=== PATIENT | female | born 1935 | race Caucasian/White ===

== ENCOUNTER 2023-10-24 00:03 | Emergency (ER) | payer MEDICARE, SELFPAY ==
[2023-10-24] VITALS (9 sets, daily range): BP systolic 130–165; BP diastolic 63–101; PULSE 60–94; RESP 16–18; TEMP 36.2–37; O2SAT 88–93; BMI 26.3
--- NOTE | ~2023-10-24 | CT_ITS ---
EXAMINATION: NONCONTRAST HEAD CT NONCONTRAST CERVICAL SPINE CT INDICATION INFORMATION: Fall with head injury COMPARISON: None TECHNIQUE: Separate noncontrast CT examinations of the head and cervical spine were performed. Coronal head CT images and coronal and sagittal cervical spine images were created at the technologist workstation. DLP: 604, 308 mGy-cm DOSE LOWERING TECHNIQUES: This CT examination was performed using dose optimization techniques as appropriate, variously including the following: - Automated exposure control - Adjustment of mA and/or kV according to patient size (this includes techniques or standardized protocols for targeted exams were dose is matched to indication/reason for exam; i.e. extremities or head) - Use of iterative reconstruction technique FINDINGS: Head: There is no evidence of acute intracranial hemorrhage or territorial infarction. No abnormal mass-effect or midline shift is seen. Rodriguez to white matter differentiation is well preserved. No extra-axial fluid collections are identified. The ventricles are normal in size. There is moderate periventricular white matter hypoattenuation consistent with chronic small vessel ischemic disease. Moderate volume loss is noted. There is left parietal scalp soft tissue swelling. No acute fracture is seen. The mastoid air cells and visualized portions of the paranasal sinuses are well-aerated. Cervical spine: There are grade 1 anterolistheses of C3 on C4 and C4 on C5 as well as grade 1 retrolisthesis of C6 on C7 and grade 1 anterolisthesis of C7 on T1. These are favored to be chronic in the setting of mild to moderate multilevel facet arthropathy. Vertebral body heights are maintained. There is disc space narrowing and endplate osteophyte formation in the lower cervical spine. No evidence of acute fracture. No prevertebral soft tissue swelling. Visualized portions of the lung apices are grossly unremarkable. The thyroid gland is not well assessed due to motion artifact. CT/CT cervical spine wo IV con IMPRESSION: HEAD: No acute intracranial findings. Left parietal scalp soft tissue swelling. CERVICAL SPINE: No acute findings identified. Moderate to severe degenerative changes.
--- NOTE | ~2023-10-24 | XR_ITS ---
EXAMINATION: XR CHEST CLINICAL INFORMATION: Cough, hypoxia COMPARISON: None available. TECHNIQUE: Frontal view of the chest was obtained. FINDINGS: There is elevation of the right hemidiaphragm, likely with adjacent basilar atelectasis. No additional consolidation is seen bilaterally. No evidence of pneumothorax, significant pleural effusion, or pulmonary edema. Cardiac size is within normal limits. Calcification is present at the aortic arch. Though suboptimally assessed on these views, there may be anterior dislocation of the right humeral head. XR/XR chest 1V IMPRESSION: 1. Elevated right hemidiaphragm with adjacent basilar atelectasis. 2. Possible anterior dislocation of the right humeral head. Dedicated radiographs of the right shoulder are recommended.
--- NOTE | ~2023-10-24 | XR_ITS ---
EXAMINATION: XR SHOULDER, RIGHT CLINICAL INFORMATION: Question dislocation COMPARISON: None available. TECHNIQUE: Two views of the right shoulder. FINDINGS: On the scapular Y view the humeral head appears slightly anteriorly positioned, suspicious for anterior subluxation. There is corresponding misalignment of the glenoid and humeral head on the AP view. The acromioclavicular joint appears widened, though this is an age-indeterminate finding. No acute fracture is seen. Redemonstrated elevated right hemidiaphragm. XR/XR shoulder RT min 2V IMPRESSION: 1. Findings suspicious for anterior subluxation of the humeral head. If possible, an axillary view may provide confirmation. 2. Widening of the acromioclavicular joint, age-indeterminate.
--- NOTE | ~2023-10-24 | CT_ITS ---
EXAMINATION: CT ANGIOGRAM OF THE CHEST WITH AND WITHOUT CONTRAST (CT PULMONARY ANGIOGRAM FOR PE) CLINICAL INFORMATION: Reason for Exam Hypoxia COMPARISON: None available. TECHNIQUE: Prior to contrast administration, noncontrast localization images were obtained. Subsequently, multidetector volumetric imaging was performed from the thoracic inlet to below the diaphragms following the administration of 65 mL Omnipaque 350 intravenous contrast. No contrast reaction reported Sagittal, coronal, and MIP oblique sagittal reformatted images were obtained on the CT workstation, uploaded to PACS, and reviewed. This CT examination was performed using dose optimization techniques as appropriate, variously including the following: *Automated exposure control *Adjustment of mA and/or kV according to patient size (this includes techniques or standardized protocols for targeted exams where dose is matched to indication/reason for exam; i.e. extremities or head) *Use of iterative reconstruction technique Total exam dose-length product 379 mGy-cm FINDINGS: Technically limited study given patient's inability to follow breathing instructions. QUALITY OF STUDY/CONTRAST BOLUS: Suboptimal. PULMONARY ARTERIES: No central or large segmental pulmonary embolus. THORACIC AORTA: No aneurysm. LUNG: Limited by motion artifact. Right basilar atelectasis. No suspicious pulmonary nodule or pulmonary masses. Central airways are patent. PLEURA: No pleural effusion. MEDIASTINUM: Elevated right hemidiaphragm. Heart is enlarged. No pericardial effusion. No bulky hilar or mediastinal lymphadenopathy. No evidence of septal bowing or right heart strain. CORONARY ARTERY CALCIFICATION: Moderate. CHEST WALL/AXILLA: No axillary or internal mammary lymphadenopathy. OSSEOUS STRUCTURES: Severe degenerative changes of bilateral shoulders. UPPER ABDOMEN: Incompletely characterized left renal hypodensities. Colonic interposition. No reflux of contrast into the hepatic veins to suggest elevated right heart pressures. CT/CT angio chest PE protocol IMPRESSION: No central or large segmental pulmonary embolus. No acute intrathoracic abnormality. VTE: indeterminate
--- NOTE | ~2023-10-24 | CT_ITS ---
EXAMINATION: CT SHOULDER WITHOUT CONTRAST, RIGHT CLINICAL INFORMATION: Abnormal x-ray COMPARISON: Radiographs from the same day TECHNIQUE: No intravenous contrast was utilized. Multidetector helical imaging was performed through the right shoulder. Coronal and sagittal reformatted images were created. This CT examination was performed using dose optimization techniques as appropriate, variously including the following: *Automated exposure control *Adjustment of mA and/or kV according to patient size (this includes techniques or standardized protocols for targeted exams where dose is matched to indication/reason for exam; i.e. extremities or head) *Use of iterative reconstruction technique DLP: 457 mGy-cm FINDINGS: There is severe degenerative change of the glenohumeral joint with joint space narrowing, spurring, and subchondral cyst formation. The apex of the humeral head appears mildly subluxed anteriorly relative to the glenoid. This may represent a chronic finding. No acute fracture is seen. There is severe degenerative change of the acromioclavicular joint. Lung parenchyma is not adequately assessed on this exam due to extensive respiratory motion artifact. CT/CT shoulder RT wo IV con IMPRESSION: Suspect mild anterior subluxation of the humeral head relative to the glenoid, which may represent a chronic finding. Severe degenerative change of the glenohumeral joint. No acute fracture identified.
--- NOTE | 2023-10-24 00:13 | ECG_ITS ---
Test Reason : FALL Blood Pressure : / mmHG Vent. Rate : 084 BPM Atrial Rate : 084 BPM P-R Int : 200 ms QRS Dur : 074 ms QT Int : 374 ms P-R-T Axes : 030 -21 044 degrees QTc Int : 441 ms Sinus rhythm with sinus arrhythmia with occasional Premature ventricular complexes Inferior infarct , age undetermined Possible Anterolateral infarct , age undetermined Abnormal ECG No previous ECGs available Referred By: Generic ED Physician Electronically Signed By:MIKAELA PHELAN MD
--- NOTE | 2023-10-24 00:42 | ED.FALL ---
HPI - Fall General Chief Complaint: Fall Stated Complaint: fall Time Seen by Provider: 10/24/23 00:27 Source: patient Mode of arrival: EMS Limitations: no limitations History of Present Illness HPI Narrative: Patient is an 88-year-old female who presents to the emergency department via EMS coming from a group home facility. Reportedly patient was found on the ground by academic support assistant, apparently was attempting to get dressed as she thought it is daytime. She is nonambulatory and wheelchair bound, she has a poor historian due to her dementia. Has laceration to the back of her head, no anticoagulants, no active bleeding. Copy of molst from [facility] indicates DNR DNI, okay to transfer to hospital Related Data Previous Rx's Medication Instructions Recorded cefuroxime axetil 500 mg tablet 500 mg PO BID #14 tabs 10/24/23 Allergies Allergy/AdvReac Type Severity Reaction Status Date / Time No Known Allergies Allergy Verified 10/24/23 00:16 Review of Systems Review of Systems: Yes all other systems are reviewed and are negative [facility] Past Medical History Attestation statement: The following information was validated with the patient. Source: old records reviewed Social History Social History Advance Directives: No Advance Directives Information Provided: Yes Physical Exam Vital Signs: Vital Signs: Last Vital Signs Temp 98.1 F 10/24/23 11:15 Pulse 86 10/24/23 11:15 Resp 16 10/24/23 11:15 BP 130/63 10/24/23 11:15 Pulse Ox 91 L 10/24/23 11:15 O2 Del Method Room Air 10/24/23 11:15 BMI result Body Mass Index 26.3 Appearance: Alert.? Disoriented. No acute distress.?Normal affect. Head: 2 cm linear laceration over scalp hematoma to the left occiput Eyes: Pupils equal, round and reactive to light.? EOMI. No nystagmus. ENT: Pharynx normal.?? Neck: Normal inspection.? Neck supple.??No midline cervical spine tenderness, step-offs, deformities. CVS: Pansystolic murmur. Normal heart rate and rhythm.? Pulses normal.?? Respiratory: No respiratory distress.? Lung sounds with rhonchi, diminished bases Abdomen: Soft and non-tender. Normoactive bowel sounds. Skin: Skin warm and dry.? Normal skin color.? Extremities: 1+ bilateral LE edema Neuro: Moves all extremities spontaneously. Sensation intact bilaterally. CN II-XII intact. No focal neuro deficits. Course Reevaluation(s) Reevaluation #1: CBC reveals a mild leukocytosis, no anemia. Unremarkable CMP. High sensitive troponin within normal range, EKG revealing sinus arrhythmia with PVCs, ventricular rate of 84, no ST elevation, no ST depression, fall likely not secondary to ACS. COVID-19 testing negative. At this time CT imaging, CXR, urinalysis are pending. Signed out to ED attending Dr. Del Rio. Time: 01:48 Reevaluation #2: s/p mechanical fall from the wheelchair questionable right shoulder subluxation versus dislocation patient on the physical exam is able to have a full range of motion on both shoulder in particular right shoulder, CT reveals chronic subluxation of the right shoulder. Otherwise negative radiographic study of head/cervical spine/chest. UTI will start on cefuroxime. Time: 06:31 Reevaluation #3: When patient ready to be discharged found to be hypoxic at 87-88% on room air, no known history of using supplemental oxygen in her records patient is unable to provide an accurate history, will consider CTA of the chest to rule out pulmonary embolism since the patient is wheelchair ridden, case signed out to Dr. Dumont. Time: 07:00 Medications Administered Discontinued Medications Generic Name Dose Route Start Last Admin Trade Name Freq PRN Reason Stop Dose Admin Cefuroxime Axetil 500 mg 10/24/23 05:29 10/24/23 06:26 Cefuroxime Axetil 500 Mg Tablet PO 10/24/23 05:30 500 mg ONCE ONE Administration Iohexol 100 ml 10/24/23 08:21 10/24/23 08:22 Iohexol 350 Mg/Ml 100 Ml Infus..Btl IV 10/24/23 08:22 65 ml ONCE ONE Administration Procedures Laceration Laceration 1: Site: scalp Side (If applicable): left Size (cm): 2 Description: linear Depth: simple, single layer Pre-repair: wound explored, irrigated extensively and deep structures intact Skin layer closed with: other (harper - 2) Medical Decision Making Medical Decision Making MDM Narrative: Patient is an 88-year-old female with past medical history of anemia, adjustment disorder, depression, right femur fracture, dementia, osteoarthritis, cardiac murmur, dysphagia, hypertension who presents emergency department for evaluation after unwitnessed fall being found on floor by staff at [facility] She is noted to have a wet sounding cough, 80 saturation on room air noted to drop down to 90, rhonchi bilaterally diminished bases. She is afebrile without tachycardia. Family at bedside reports that she has had cough recently. Will obtain CBC to evaluate for leukocytosis/ anemia, CMP and lipase to evaluate for abnormal electrolytes /abnormal renal function/ abnormal hepatic/biliary function, EKG and troponin to evaluate for ischemia/ACS. Chest x-ray to evaluate for consolidation/ infiltrate/ mass/ pulmonary congestion , CT head and cervical spine to evaluate for ICH/SDH/fracture/subluxation, and urinalysis. Patient's CT scan of the head and C-spines were negative for any acute evidence of bleeding. I took sign-out at the change of shift for possible PE/pneumonia/aspiration. Angio of the chest was grossly negative for any acute evidence of PE, pneumonia, pneumothorax, rib fracture. O2 sats approximately 91% to 92% on room air. Patient in no distress. As per previous discussion with Dr. Harvey will discharge patient home. Differential Diagnosis Differential Diagnoses: The differential diagnosis associated with the presentation includes (As noted above) Weakness, fall, head injury, UTI Admission/Observation Consideration of admission/observation: Escalation of care including admission/observation considered (See narrative above and course narrative for further detail) Lab Data MDM Lab Attestation statement: I reviewed the patient's lab results. (See course narrative) 10/24/23 01:00 10/24/23 01:00 Labs: Lab Results 10/24/23 10/24/23 10/24/23 Range/Units 00:44 01:00 01:48 WBC 11.2 H (4.8-10.8) X10*3/uL RBC 5.55 H (4.20-5.50) X10*6/uL Hgb 16.3 H (12.0-16.0) g/dl Hct 50.1 H (37.0-47.0) % MCV 90.3 (80.0-98.0) fL MCH 29.4 (27.0-33.0) pg MCHC 32.5 (31.0-35.0) g/dl RDW 14.8 (11.0-16.0) % Plt Count 231 (160-400) X10*3/uL MPV 11.0 (9.4-12.3) fL Immature Gran % (Auto) 0.6 H (0.0-0.4) % Neut % (Auto) 63.4 (45-73) % Lymph % (Auto) 25.0 (20-40) % [place] % (Auto) 8.5 (2-11) % Eos % (Auto) 2.0 (0-4) % Baso % (Auto) 0.5 (0-2) % Lymph # (Auto) 2.8 (1.2-4.9) X10*3/uL [place] # (Auto) 1.0 (0.1-1.2) X10*3/uL Eos # (Auto) 0.2 (0.0-0.4) X10*3/uL Baso # (Auto) 0.1 (0.0-0.2) X10*3/uL Abs Immat Gran (auto) 0.07 H (0.00-0.03) X10*3/uL Absolute Neuts (auto) 7.1 (2.0-8.3) x10*3/uL Absolute Nucleated RBC 0.000 (0.0-0.012) X10*3/uL Nucleated RBC % (auto) 0.0 (0.0-0.2) /100WBC PT 11.5 (11.1-13.3) SEC INR 0.9 (0.9-1.1) Sodium 141 (135-145) mmol/L Potassium 4.7 (3.3-5.1) mmol/L Chloride 102 (96-108) mmol/L Carbon Dioxide 29 (22-29) mmol/L Anion Gap 15 (12-20) BUN 16 (9-16) mg/dL Creatinine 0.69 (0.5-1.4) mg/dL Estim Creat Clear Calc 51.9 Estimated GFR > 60 Random Glucose 94 (60-115) mg/dL Calcium 9.4 (8.4-10.2) mg/dL Total Bilirubin 0.5 (0.0-1.0) mg/dL AST 27 (5-31) U/L ALT 20 (0-31) U/L Alkaline Phosphatase 94 (39-117) U/L Troponin I High Sens 3.7 (<3.5-17.0) ng/L B-Natriuretic Peptide 43 (<100) pg/mL Total Protein 7.8 (6.5-8.0) g/dL Albumin 3.9 (3.5-5.0) g/dL Urine Color Urine Appearance Urine pH (5.0-9.0) Ur Specific Jackson (1.005-1.025) Urine Protein (Neg-Trace) mg/dL Urine Glucose (UA) (Negative) mg/dL Urine Ketones (Negative) mg/dL Urine Blood (Negative) Urine Nitrite (Negative) Ur Leukocyte Esterase (Negative) Urine RBC (0-2) /HPF Urine WBC (0-5) /HPF Ur Squamous Epith Cells (0-2) /HPF Urine Bacteria (None Seen) Hyaline Casts (0-2) /LPF COVID-19 (ERMA) Negative (Negative) COVID-19 Clin Com See Note Influenza Type A (HARRY) Cancelled Negative Influenza Type B (HARRY) Cancelled Negative Influenza A & B Note Cancelled See Note 10/24/23 Range/Units 03:46 WBC (4.8-10.8) X10*3/uL RBC (4.20-5.50) X10*6/uL Hgb (12.0-16.0) g/dl Hct (37.0-47.0) % MCV (80.0-98.0) fL MCH (27.0-33.0) pg MCHC (31.0-35.0) g/dl RDW (11.0-16.0) % Plt Count (160-400) X10*3/uL MPV (9.4-12.3) fL Immature Gran % (Auto) (0.0-0.4) % Neut % (Auto) (45-73) % Lymph % (Auto) (20-40) % [place] % (Auto) (2-11) % Eos % (Auto) (0-4) % Baso % (Auto) (0-2) % Lymph # (Auto) (1.2-4.9) X10*3/uL [place] # (Auto) (0.1-1.2) X10*3/uL Eos # (Auto) (0.0-0.4) X10*3/uL Baso # (Auto) (0.0-0.2) X10*3/uL Abs Immat Gran (auto) (0.00-0.03) X10*3/uL Absolute Neuts (auto) (2.0-8.3) x10*3/uL Absolute Nucleated RBC (0.0-0.012) X10*3/uL Nucleated RBC % (auto) (0.0-0.2) /100WBC PT (11.1-13.3) SEC INR (0.9-1.1) Sodium (135-145) mmol/L Potassium (3.3-5.1) mmol/L Chloride (96-108) mmol/L Carbon Dioxide (22-29) mmol/L Anion Gap (12-20) BUN (9-16) mg/dL Creatinine (0.5-1.4) mg/dL Estim Creat Clear Calc Estimated GFR Random Glucose (60-115) mg/dL Calcium (8.4-10.2) mg/dL Total Bilirubin (0.0-1.0) mg/dL AST (5-31) U/L ALT (0-31) U/L Alkaline Phosphatase (39-117) U/L Troponin I High Sens (<3.5-17.0) ng/L B-Natriuretic Peptide (<100) pg/mL Total Protein (6.5-8.0) g/dL Albumin (3.5-5.0) g/dL Urine Color Yellow Urine Appearance Cloudy Urine pH 7.0 (5.0-9.0) Ur Specific Jackson 1.015 (1.005-1.025) Urine Protein Negative (Neg-Trace) mg/dL Urine Glucose (UA) Negative (Negative) mg/dL Urine Ketones Negative (Negative) mg/dL Urine Blood Negative (Negative) Urine Nitrite Positive H (Negative) Ur Leukocyte Esterase Large (3+) H (Negative) Urine RBC 0-2 (0-2) /HPF Urine WBC >50 H (0-5) /HPF Ur Squamous Epith Cells 0-2 (0-2) /HPF Urine Bacteria 4+ (None Seen) Hyaline Casts 0-2 (0-2) /LPF COVID-19 (ERMA) (Negative) COVID-19 Clin Com Influenza Type A (HARRY) Influenza Type B (HARRY) Influenza A & B Note Independent Interpretation I performed an independent interpretation of an: Plain X-Ray (I personally interpreted chest x-ray and agree with radiologist impression) and CT Scan (Head/C-spine: No acute pathology.) Radiology Impression Discussion of test interpretation with radiology: I have reviewed the radiologist's reading. Radiologist Impression: I reviewed the CTA findings Independent Historian Clinical information obtained from an independent historian. History obtained from or confirmed by: EMS External Record Review External record reviewed: Outpatient record Chronic Conditions Patient?s care impacted by: Other (Dementia) Discharge Plan Discharge Clinical Impression: Laceration of head, Fall, Acute UTI Patient Disposition: Home, Self-Care Instructions: Fall Prevention (ED), Urinary Tract Infection in Older Adults (ED) Additional Instructions: Two harper were placed to the laceration of the scalp and should be removed in 7 days. Take antibiotic as prescribed for urinary tract infection. Prescriptions: New cefuroxime axetil 500 mg tablet 500 mg PO BID Qty: 14 0RF Referrals: Veena Puga MD [Primary Care Provider] -
[2023-10-24 01:05] LABS: Basophils Absolute Auto 0.1 X10*3/uL (0.0-0.2); Basophils Percent Auto 0.5 % (0-2); Eosinophils Absolute Auto 0.2 X10*3/uL (0.0-0.4); Hematocrit 50.1 % (37.0-47.0); Hemoglobin 16.3 g/dl (12.0-16.0); Imm Gran Abs Auto 0.07 X10*3/uL (0.00-0.03); Imm Gran Pct Auto 0.6 % (0.0-0.4); Lymphocytes Absolute Auto 2.8 X10*3/uL (1.2-4.9); MANUAL DIFF FLAG NO; Mean Corpuscular HGB Conc 32.5 g/dl (31.0-35.0); Mean Corpuscular Hemoglobin 29.4 pg (27.0-33.0); Mean Corpuscular Volume 90.3 fL (80.0-98.0); Monocytes Percent Auto 8.5 % (2-11); Neutrophils Absolute Auto 7.1 x10*3/uL (2.0-8.3); Neutrophils Percent Auto 63.4 % (45-73); Platelet Count 231 X10*3/uL (160-400); Red Blood Count 5.55 X10*6/uL (4.20-5.50); Red Cell Distribution Width 14.8 % (11.0-16.0); White Blood Count 11.2 X10*3/uL (4.8-10.8)
[2023-10-24 01:11] LABS: INTERNATIONAL NORM RATIO 0.9 (0.9-1.1); Prothrombin Time 11.5 SEC (11.1-13.3)
[2023-10-24 01:25] LABS: Alanine Aminotransferase 20 U/L (0-31); Albumin Level 3.9 g/dL (3.5-5.0); Alkaline Phosphatase 94 U/L (39-117); Anion Gap 15 (12-20); Aspartate Amino Transferase 27 U/L (5-31); Bilirubin Total 0.5 mg/dL (0.0-1.0); Blood Urea Nitrogen 16 mg/dL (9-16); COVID-19 Test Negative (Negative); Calcium 9.4 mg/dL (8.4-10.2); Carbon Dioxide 29 mmol/L (22-29); Chloride 102 mmol/L (96-108); Creatinine Clr Calc Pharmacy 51.9; Estimated Glomerular Filt Rate > 60; Glucose Random 94 mg/dL (60-115); IDNOW Serial# 152EDE1D; Potassium 4.7 mmol/L (3.3-5.1); Sodium 141 mmol/L (135-145); Total Protein 7.8 g/dL (6.5-8.0)
[2023-10-24 01:33] LABS: Troponin-I High Sensitivity 3.7 ng/L (<3.5-17.0)
[2023-10-24 02:07] LABS: B Type Natriuretic Peptide 43 pg/mL (<100)
[2023-10-24 02:10] LABS: IDNOW Serial# 08D9AD1C; Influenza A Negative (Negative); Influenza B2 Negative (Negative)
[2023-10-24 03:52] LABS: Appearance Urine Cloudy; Color Urine Yellow; Glucose Urine UA Negative (Negative); Leukocyte Esterase Urine Large (3+) (Negative); Nitrite Urine Positive (Negative); Specific Gravity - Urine 1.015 (1.005-1.025); UMIC TRIGGER UACC YES; Urine Blood Negative (Negative); Urine Ketones Negative (Negative); Urine Protein Negative (Neg-Trace)
[2023-10-24 04:01] LABS: Bacteria Urine 4+ (None Seen); Hyaline Casts Urine 0-2 /LPF (0-2); Squamous Epithelial Cell Urine 0-2 /HPF (0-2); UACC Culture Trigger YES; WBC Urine >50 /HPF (0-5)
[2023-10-24 04:02] LABS: RBC Urine 0-2 /HPF (0-2)
[2023-10-24] MEDS: cefuroxime axetiL 500 MG TABLET PO (06:26)
[2023-10-24] MEDS: iohexoL 350 MG/ML 100 ML INFUS..BTL IV (08:22)
--- NOTE | 2023-10-24 08:30 | PC.NURSE ---
REsumed care of patient, she is currently resting, O2 ranging from 87-95 on RA. PT at baseline neuro status. Awaiting dispo at this time
--- NOTE | 2023-10-24 11:17 | PC.NURSE ---
this RN resumed care of pt a this time. alert and oriented to name only. unaware of what year she was born, pt thinks she is [place], unaware on what year it is why she's here. vss and up to date. pt denies pain - has no complaints at this time. pt resting comfortably in no apparent distress. no sob/wob noted. respirations even and unlabored. call norris placed within reach.
--- NOTE | 2023-10-24 12:48 | PC.NURSE ---
family bedside/ speaking w/ family members in regards to plan of care at this time. pt is up for d/c but ems is not able to bring pt home until 1800. pt and family aware of time for d/c at this time. diet order placed per provider order. pt continues to rest in no apparent distress. call norris placed within reach.
--- NOTE | 2023-10-24 14:03 | PC.NURSE ---
vss and up to date at this time. pt continues to wait for transport at this time. respirations remain even and unlabored. call norris placed within reach.
--- NOTE | 2023-10-24 15:30 | PC.NURSE ---
report from oc. sanaz due for 1800 from [facility].
--- NOTE | 2023-10-24 15:40 | MHC.EDTECH ---
This Pct assumed care of pt at 1500 ,vitals taken ,pt was incontinent of urine ,care given and bedding change .
--- NOTE | 2023-10-24 18:15 | PC.NURSE ---
continuing to wait for [facility], reconfirmed w racing secretary and handicapper due for a 1800 arrival by [facility]- delayed. pt ate dinner w 1:1 feed. priscila checked- clear yellow urine voiding.
--- NOTE | 2023-10-24 19:17 | PC.NURSE ---
called [facility]. given report.
--- NOTE | 2023-10-24 19:21 | PC.NURSE ---
report given to [facility] counselor. pt with duy sandoval now.
--- NOTE | 2023-10-24 19:23 | MHC.EDTECH ---
Patient feed her dinner
--- NOTE | 2023-10-24 19:30 | PC.NURSE ---
munira sanderson at bedside to listen to lungs as an audible wheeze- none on auscultation. pt sat 90%. talks full sentences.
--- NOTE | 2023-10-24 19:34 | PC.NURSE ---
no distress. talking. maria e lombardo aware sat 89% on finger, had thick nail greenlandic on this finger. changed to forehead probe and 92-93%, maria e miller'sunitha pt, aware.
== END 2023-10-24 19:47 | disposition home or self-care (01) ==
PROVIDERS: Emergency Medicine; Nurse Practitioner Family; Emergency Provider Emergency Medicine Emergency Medical Services; PCP Internal Medicine
DX: S01.01XA Laceration without foreign body of scalp, initial encounter (principal); R51.9 Headache, unspecified; N39.0 Urinary tract infection, site not specified; M25.511 Pain in right shoulder; F03.90 Unspecified dementia, unspecified severity, without behavioral disturbance, psychotic disturbance, mood disturbance, and anxiety; I49.9 Cardiac arrhythmia, unspecified; R09.02 Hypoxemia; R06.02 Shortness of breath; W01.10XA Fall on same level from slipping, tripping and stumbling with subsequent striking against unspecified object, initial encounter; Y93.9 Activity, unspecified; Y92.9 Unspecified place or not applicable; Y99.9 Unspecified external cause status; Z11.52 Encounter for screening for COVID-19; Z79.899 Other long term (current) drug therapy
CPT/HCPCS: 12031; 36415; 70450; 71045; 71275; 72125; 73030; 73200; 80053; 81001; 83880; 84484; 85025; 85610; 87086; 87088; 87186; 87502; 87635; 93005; 99284; 99285; Q9967

== ENCOUNTER → 2023-10-24 00:13 | Outpatient (BNV) | payer MEDICARE, SELFPAY | PROVIDERS: Emergency Provider Emergency Medicine Emergency Medical Services; PCP Internal Medicine; Visit Provider Internal Medicine Cardiovascular Disease | DX: I49.3 Ventricular premature depolarization (principal); R94.31 Abnormal electrocardiogram [ECG] [EKG] | CPT/HCPCS: 93010 ==

== ENCOUNTER 2025-01-11 09:28 | Inpatient (IN) | payer MEDICARE, SELFPAY ==
[2025-01-11] VITALS (10 sets, daily range): BP systolic 96–181; BP diastolic 46–95; PULSE 69–90; RESP 16–26; TEMP 35.6–36.5; O2SAT 88–97; BMI 24.0; BMI 24.7
--- NOTE | ~2025-01-11 | US_ITS ---
EXAMINATION: US EXTRACRANIAL CAROTID DUPLEX, BILATERAL CLINICAL INFORMATION: Unresponsive. Probable CVA. COMPARISON: None available. TECHNIQUE: Real-time ultrasound and Doppler techniques (integrating B-mode 2-D vascular images, Doppler spectral analysis and color-flow Doppler imaging) were utilized to interrogate the extracranial carotid arteries, the vertebral arteries and proximal subclavian arteries bilaterally. The degree of stenosis is determined by criteria similar to NASCET. FINDINGS: Right Side: 1. There is irregular calcified atherosclerotic plaque seen in the bifurcation/proximal ICA region. 2. The common carotid artery PSV proximally is 58 cm/s and distally 64 cm/s. 3. The proximal internal carotid artery velocities are 47 cm/s systolic and 10 cm/s diastolic. 4. The proximal external carotid artery PSV is 90 cm/s. 5. The vertebral artery shows antegrade flow. 6. The subclavian artery waveforms are triphasic. Left Side: 1. There is mixed atherosclerotic plaque seen in the bifurcation/proximal ICA region. 2. The common carotid artery PSV proximally is 75 cm/s and distally 68 cm/s. 3. The proximal internal carotid artery velocities are 37 cm/s systolic and 8 cm/s diastolic. 4. The proximal external carotid artery PSV is 90 cm/s. 5. The vertebral artery shows antegrade flow. 6. The subclavian artery is not imaged. US/US carotid duplex BI IMPRESSION: 1. RIGHT: Irregular calcified plaque. 0-49% stenosis by ultrasound criteria. 2. LEFT: [. 0-49% stenosis by ultrasound criteria. Electronically signed by: Tristian Linder MD 01/12/2025 07:27 AM EDT
--- NOTE | ~2025-01-11 | CT_ITS ---
EXAMINATION: CT HEAD WITHOUT CONTRAST (STROKE PROTOCOL) CLINICAL INFORMATION: Stroke protocol. Altered mental status. No further clinical information provided. COMPARISON: None available. TECHNIQUE: Contiguous axial imaging was performed from the skull base to vertex without intravenous administration of contrast. This CT examination was performed using dose optimization techniques as appropriate, variously including the following: *Automated exposure control *Adjustment of mA and/or kV according to patient size (this includes techniques or standardized protocols for targeted exams where dose is matched to indication/reason for exam; i.e. extremities or head) *Use of iterative reconstruction technique FINDINGS: There is no evidence of intracranial hemorrhage or extra-axial fluid collection. There is no mass effect, or edema. No CT evidence of acute territorial infarct. Ventricles, sulci, and cisterns are diffusely somewhat prominent, in keeping with age related cerebral and cerebellar involutional changes.. No hydrocephalus. No midline shift. Negative hyperdense MCA sign. Negative insular ribbon sign. Patchy periventricular and deep white matter hypoattenuation is consistent with moderate to severe small vessel ischemic changes. 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 Atheromatous calcification of the bilateral carotid siphons and V4 segments vertebral arteries bilaterally. Globes and orbital contents image normally. There are bilateral lens replacements. No extracranial soft tissue abnormalities. The paranasal sinuses, mastoid air cells, and tympanic cavities are normally aerated. No suspicious bony abnormalities. There are no acute fractures evident. 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 CT/CT head for STROKE IMPRESSION: No acute intracranial abnormality. Extensive chronic changes as discussed. Electronically signed by: Demarcus Prince MD 01/11/2025 09:50 AM EDT
--- NOTE | ~2025-01-11 | CT_ITS ---
EXAMINATION: CT ANGIOGRAM CHEST CLINICAL INFORMATION: Hypoxia. Elevated troponin. COMPARISON: None available. TECHNIQUE: Multiple axial images were obtained through the chest after the administration of 65 mL of Omnipaque 350 intravenous contrast. Extensive vascular post-processing including two-dimensional and three-dimensional reformatted images were created and reviewed on an independent workstation. This CT examination was performed using dose optimization techniques as appropriate, variously including the following: *Automated exposure control *Adjustment of mA and/or kV according to patient size (this includes techniques or standardized protocols for targeted exams where dose is matched to indication/reason for exam; i.e. extremities or head) *Use of iterative reconstruction technique FINDINGS: Limited exam secondary to breathing artifact. VASCULAR: There is good opacification of pulmonary artery and its branches without intraluminal filling defect or narrowing. The thoracic aorta is of normal caliber. No aneurysm or dissection seen. A three-vessel branching of the aortic arch is noted. Heart size is normal. No pericardial effusion seen. Minimal coronary artery calcifications are present. NONVASCULAR: The lungs are limited in visualization secondary to breathing artifact. However they are expanded with bibasilar dependent atelectasis. No consolidation, mass or pulmonary nodules visualized. No abnormal size axillary lymph nodes seen. The chest wall is unremarkable. No pleural effusion or thickening noted. There is diffuse osteopenia. Visualized liver and spleen is unremarkable CT/CT angio chest PE protocol IMPRESSION: No evidence of PE. No evidence of aortic dissection or aneurysm. Bibasilar atelectasis and or scarring. Fleischner guidelines were followed. Electronically signed by: Freddy Cooper MD 01/11/2025 04:45 PM EDT
--- NOTE | ~2025-01-11 | XR_ITS ---
EXAMINATION: XR CHEST CLINICAL INFORMATION: SOB COMPARISON: 10/24/2023 TECHNIQUE: Frontal view of the chest was obtained. FINDINGS: Cardiac silhouette is likely enlarged. Aortic mural calcification. Hilar contours are normal. Low lung volumes present. Bronchovascular crowding throughout. No consolidations or effusions. No focal osseous or soft tissue abnormality. Chronic appearing right glenohumeral subluxation. 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 XR/XR chest 1V IMPRESSION: Low lung volumes. Cardiac enlargement. No definite active pulmonary disease. Electronically signed by: Demarcus Prince MD 01/11/2025 03:51 PM EDT
--- NOTE | 2025-01-11 09:37 | ECG_ITS ---
Test Reason : stroke Blood Pressure : */* mmHG Vent. Rate : 83 BPM Atrial Rate : 83 BPM P-R Int : 202 ms QRS Dur : 56 ms QT Int : 366 ms P-R-T Axes : 41 -22 27 degrees QTcB Int : 430 ms Sinus rhythm with Premature atrial complexes Borderline ECG When compared with ECG of 24-Oct-2023 00:20, Premature ventricular complexes are no longer Present Premature atrial complexes are now Present Borderline criteria for Anterior infarct are no longer Present Borderline criteria for Anterolateral infarct are no longer Present Referred By: Lam Caro Electronically Signed By: GENNA NAYAK
--- NOTE | 2025-01-11 09:39 | ED.AMS ---
HPI - Altered Mental Status General Chief Complaint: Altered Mental Status Stated Complaint: AMS @6-6:30, LETHARGY,+TO PAIN,-THINNER,SNF Time Seen by Provider: 01/11/25 09:36 Source: EMS Mode of arrival: EMS Limitations: altered mental status History of Present Illness HPI narrative: This is a 89 years old female from the correction brought in with altered mental status. Patient is unable to give any history at this time. At baseline she is not ambulatory, she is wheelchair ridden, she has a an order for DNR DNI. The last time seen normal was yesterday this morning she was lethargic and then became more lethargic. She is unable to give any history, she does not follow any command this time she respond to pain. MD complaint: altered mental status and decreased responsiveness Onset (ago): day(s) (1) Severity: severe Related Data Home Medications ?Medication ?Instructions ?Recorded ?Confirmed Saccharomyces boulardii 250 mg 250 mg PO BID 01/11/25 01/11/25 capsule (Probiotic (S.boulardii)) acetaminophen 325 mg tablet 650 mg PO Q4H PRN Pain/Fever 01/11/25 01/11/25 albuterol sulfate 2.5 mg/3 mL 2.5 mg inhalation Q6H PRN 01/11/25 01/11/25 (0.083 %) solution for nebulization Shortness Of Breath Or Wheezing ascorbic acid (vitamin C) 500 mg 500 mg PO BID 01/11/25 01/11/25 tablet (Vitamin C) bisacodyl 10 mg rectal suppository 10 mg NE DAILY PRN Constipation 01/11/25 01/11/25 cranberry fruit 450 mg tablet 450 mg PO BID 01/11/25 01/11/25 (cranberry) loperamide 2 mg tablet 2 mg PO DAILY PRN Loose Stool 01/11/25 01/11/25 magnesium citrate (Citrate of 150 ml PO DAILY PRN Constipation 01/11/25 01/11/25 Magnesia oral) magnesium hydroxide 400 mg/5 mL 30 ml PO DAILY PRN Constipation 01/11/25 01/11/25 oral suspension (Milk of Magnesia) miconazole nitrate 2 % topical 1 appl topical DAILY PRN Rash on 01/11/25 01/11/25 cream (Antifungal (miconazole)) Groin sennosides 8.6 mg tablet 17.2 mg PO DAILY 01/11/25 01/11/25 sodium phosphates 19 gram-7 118 ml NE DAILY PRN Constipation 01/11/25 01/11/25 gram/118 mL enema (Fleet Enema) Allergies Allergy/AdvReac Type Severity Reaction Status Date / Time No Known Allergies Allergy Verified 01/11/25 10:16 Review of Systems Review of Systems: Yes Unobtainable due to mental condition [facility] Past Medical History [facility] Narrative: She has a history of anemia, dementia, hypertension history of UTI not ambulatory at baseline Medical History Dementia Recurrent UTI Social History Social History Patient Tobacco Use Status: Never used Tobacco Smoked in Last 30 Days: No Use of substances other than those prescribed or required for medical reasons: No Advance Directives: Yes Advance Directives Information Provided: Yes Advance Directives on File: No Do you have a plan to hurt others: No Plan Nutrition Risks: On aspiration precautions and Poor intake 0-25% >4 days Physical Exam ED Vital Signs: Vital Signs - 24 hr 01/11/25 10:14 01/11/25 11:08 01/11/25 12:00 Temperature 97.5 F 97.0 F 96.3 F L Pulse Rate 81 84 86 Respiratory Rate 20 24 H 25 H Blood Pressure 96/58 L 145/74 H 181/55 H Pulse Oximetry 88 L 96 96 Oxygen Delivery Method Room Air Nasal Cannula Room Air Oxygen Flow Rate 2 01/11/25 12:31 01/11/25 12:45 01/11/25 14:22 Temperature 96.1 F L 96.3 F L 96.3 F L Pulse Rate 78 80 85 Respiratory Rate 19 22 H 26 H Blood Pressure 168/82 H 110/54 L 124/51 L Pulse Oximetry 97 96 96 Oxygen Delivery Method Nasal Cannula Nasal Cannula Nasal Cannula Oxygen Flow Rate 2 2 2 BMI result Body Mass Index 24.0 Altered mental status Const Other: Basically unresponsive respond to pain only HENMT Head: Yes normal to inspection General nose exam: Normal external nose present Neck Neck: Yes normal visual inspection Resp Effort & Inspection: normal respiratory effort Auscultation: clear to auscultation bilaterally Cardio Jugular venous distension: no JVD Rate: regular rate Rhythm: regular rhythm GI Inspection: Yes normal to inspection Palpation (GI): Soft to palpation Percussion: Yes normal to percussion Auscultation: normal bowel sounds Neuro Other: Decreased level of consciousness respond to painful stimuli Course Reevaluation(s) Reevaluation #1: Patient remained with altered mental status, delta trop is now positive I reviewed the EKG there is no ST-elevation or ST-depression. I discussed the case with the sales communications manager Dr. Malcolm it is reasonable to administer secure Lovenox and rectal aspirin for now. This was communicated to the admitting hospitalist . I spoke with the son as well I inform about the posterior troponin son okay with the administer showed of Lovenox. The patient remain DNR DNI Time: 15:14 Medications Administered Generic Name Dose Route Start Last Admin Trade Name Freq PRN Reason Stop Dose Admin Enoxaparin Sodium 60 mg 01/11/25 16:00 01/11/25 16:04 Enoxaparin Sodium 60 Mg/0.6 Ml Syringe 1 mg/kg (60 mg) 60 mg SUBCUT Administration Q12H JORDAN Lactated Ringer's 1,000 mls @ 100 mls/hr 01/11/25 15:30 01/11/25 16:07 Lr IVCONT 100 mls/hr .Q10H JORDAN Administration Sodium Chloride 3 ml 01/11/25 16:00 01/11/25 16:08 0.9 % Sodium Chloride Flush 3 Ml Syringe IVFLUSH Not Given QSHIFT JORDAN Discontinued Medications Generic Name Dose Route Start Last Admin Trade Name Freq PRN Reason Stop Dose Admin Aspirin 300 mg 01/11/25 15:19 01/11/25 16:07 Aspirin 300 Mg Supp.Rect NE 01/11/25 15:20 300 mg ONCE ONE Administration Ceftriaxone Sodium 1 gm 01/11/25 11:57 01/11/25 12:42 Ceftriaxone Sodium 1 Gm Vial IVPUSH 01/11/25 11:58 1 gm ONCE ONE Administration Sodium Chloride 1,000 mls @ 999 mls/hr 01/11/25 10:30 01/11/25 12:13 Ns IVCONT 01/11/25 11:30 Infused .Q1H1M JORDAN Infusion Iohexol 100 ml 01/11/25 16:15 01/11/25 16:15 Iohexol 350 Mg/Ml 100 Ml Infus..Btl IV 01/11/25 16:16 65 ml ONCE ONE Administration Medical Decision Making Medical Decision Making [facility] Narrative: Patient is here with altered mental status we will obtain a CT labs UA Head CT negative UA showed urinary tract infection, patient remained very lethargic I sensitive troponin is positive as well. I spoke with the son patient DNR DNI , son does no want to be too aggressive about he will a low IV antibiotic. I consider CTA of the head and neck but hospitalist wants to do a CTA of the chest therefore we can not inject her twice. Son also does not want MRI head Differential Diagnosis Differential Diagnoses: The differential diagnosis associated with the presentation includes Head bleed/electrolytes normality/ urinary tract infection/CVA Admission/Observation Consideration of admission/observation: Escalation of care including admission/observation considered Consult Healthcare Provider Management of the patient was discussed with: Hospitalist and Horticulture Superintendent sales communications manager Lab Data [facility] Lab Attestation statement: I reviewed the patient's lab results. 01/11/25 10:39 01/11/25 10:59 Labs: Lab Results 01/11/25 01/11/25 01/11/25 Range/Units 09:57 10:39 10:49 WBC 10.5 (4.8-10.8) X10*3/uL RBC 4.88 (4.20-5.50) X10*6/uL Hgb 14.4 (12.0-16.0) g/dl Hct 44.8 (37.0-47.0) % MCV 91.8 (80.0-98.0) fL MCH 29.5 (27.0-33.0) pg MCHC 32.1 (31.0-35.0) g/dl RDW 15.0 (11.0-16.0) % Plt Count 194 (160-400) X10*3/uL MPV 11.7 (9.4-12.3) fL Immature Gran % (Auto) 0.5 H (0.0-0.4) % Neut % (Auto) 82.6 H (45-73) % Lymph % (Auto) 10.8 L (20-40) % Alfalfa % (Auto) 5.5 (2-11) % Eos % (Auto) 0.1 (0-4) % Baso % (Auto) 0.5 (0-2) % Lymph # (Auto) 1.1 L (1.2-4.9) X10*3/uL Alfalfa # (Auto) 0.6 (0.1-1.2) X10*3/uL Eos # (Auto) 0.0 (0.0-0.4) X10*3/uL Baso # (Auto) 0.1 (0.0-0.2) X10*3/uL Abs Immat Gran (auto) 0.05 H (0.00-0.03) X10*3/uL Absolute Neuts (auto) 8.7 H (2.0-8.3) x10*3/uL Absolute Nucleated RBC 0.000 (0.0-0.012) X10*3/uL Nucleated RBC % (auto) 0.0 (0.0-0.2) /100WBC VBG pH 7.40 (7.32-7.43) VBG pCO2 49 mmHg VBG pO2 76 mmHg VBG HCO3 31 H (22-26) mmol/L VBG O2 Saturation 97.0 % VBG Base Excess 5.4 mmol/L Sodium (135-145) mmol/L Potassium (3.3-5.1) mmol/L Chloride (96-108) mmol/L Carbon Dioxide (22-29) mmol/L Anion Gap (12-20) BUN (9-16) mg/dL Creatinine (0.5-1.4) mg/dL Estim Creat Clear Calc Estimated GFR POC Glucose 128 H (60-115) mg/dL Random Glucose (60-115) mg/dL Calcium (8.4-10.2) mg/dL Total Bilirubin (0.0-1.0) mg/dL AST (5-31) U/L ALT (0-31) U/L Alkaline Phosphatase (39-117) U/L Troponin I High Sens 110.6 H* D (<3.5-17.0) ng/L Total Protein (6.5-8.0) g/dL Albumin (3.5-5.0) g/dL Urine Color Urine Appearance Urine pH (5.0-9.0) Ur Specific Elsa (1.005-1.025) Urine Protein (Neg-Trace) mg/dL Urine Glucose (UA) (Negative) mg/dL Urine Ketones (Negative) mg/dL Urine Blood (Negative) Urine Nitrite (Negative) Ur Leukocyte Esterase (Negative) Urine RBC (0-2) /HPF Urine WBC (0-5) /HPF Ur Squamous Epith Cells (0-2) /HPF Calcium Oxalate Crystal Urine Bacteria (None Seen) Hyaline Casts (0-2) /LPF 01/11/25 01/11/25 Range/Units 10:59 14:18 WBC (4.8-10.8) X10*3/uL RBC (4.20-5.50) X10*6/uL Hgb (12.0-16.0) g/dl Hct (37.0-47.0) % MCV (80.0-98.0) fL MCH (27.0-33.0) pg MCHC (31.0-35.0) g/dl RDW (11.0-16.0) % Plt Count (160-400) X10*3/uL MPV (9.4-12.3) fL Immature Gran % (Auto) (0.0-0.4) % Neut % (Auto) (45-73) % Lymph % (Auto) (20-40) % Alfalfa % (Auto) (2-11) % Eos % (Auto) (0-4) % Baso % (Auto) (0-2) % Lymph # (Auto) (1.2-4.9) X10*3/uL Alfalfa # (Auto) (0.1-1.2) X10*3/uL Eos # (Auto) (0.0-0.4) X10*3/uL Baso # (Auto) (0.0-0.2) X10*3/uL Abs Immat Gran (auto) (0.00-0.03) X10*3/uL Absolute Neuts (auto) (2.0-8.3) x10*3/uL Absolute Nucleated RBC (0.0-0.012) X10*3/uL Nucleated RBC % (auto) (0.0-0.2) /100WBC VBG pH (7.32-7.43) VBG pCO2 mmHg VBG pO2 mmHg VBG HCO3 (22-26) mmol/L VBG O2 Saturation % VBG Base Excess mmol/L Sodium 141 (135-145) mmol/L Potassium 4.8 (3.3-5.1) mmol/L Chloride 109 H (96-108) mmol/L Carbon Dioxide 23 (22-29) mmol/L Anion Gap 14 (12-20) BUN 18 H (9-16) mg/dL Creatinine 0.67 (0.5-1.4) mg/dL Estim Creat Clear Calc 45.0 Estimated GFR > 60 POC Glucose (60-115) mg/dL Random Glucose 117 H (60-115) mg/dL Calcium 8.7 D (8.4-10.2) mg/dL Total Bilirubin 0.4 (0.0-1.0) mg/dL AST 34 H (5-31) U/L ALT 11 (0-31) U/L Alkaline Phosphatase 82 (39-117) U/L Troponin I High Sens 251.7 H* D (<3.5-17.0) ng/L Total Protein 6.4 L (6.5-8.0) g/dL Albumin 3.3 L (3.5-5.0) g/dL Urine Color Yellow Urine Appearance Turbid Urine pH 6.0 (5.0-9.0) Ur Specific Elsa 1.015 (1.005-1.025) Urine Protein 30 (1+) H (Neg-Trace) mg/dL Urine Glucose (UA) Negative (Negative) mg/dL Urine Ketones Trace (Negative) mg/dL Urine Blood Moderate (2+) H (Negative) Urine Nitrite Positive H (Negative) Ur Leukocyte Esterase Large (3+) H (Negative) Urine RBC >20 H (0-2) /HPF Urine WBC >50 H (0-5) /HPF Ur Squamous Epith Cells 11-20 (0-2) /HPF Calcium Oxalate Crystal Present Urine Bacteria 4+ (None Seen) Hyaline Casts >20 (0-2) /LPF Independent Interpretation I performed an independent interpretation of an: Plain X-Ray and CT Scan Interpretation: Not acute disease Discharge Plan Discharge Clinical Impression: Acute UTI, Troponin I above reference range Altered mental status Qualifiers: Altered mental status type: unspecified Qualified Code(s): R41.82 - Altered mental status, unspecified Patient Disposition: Admitted As Inpatient Interventions: Admission Worksheet (ED) Last Done: 01/11/25 14:04
[2025-01-11 10:02] LABS: Glucose, Whole Blood 128 mg/dL (60-115)
--- NOTE | 2025-01-11 10:15 | PC.NURSE ---
Pt biba from snf for increased AMS, garbled speech, lethargic. Per snf staff, around approx 0600am they got pt up to the dining room for breakfast and she wasn't acting like her baseline. Upon arrival, pt lethargic, responds to painful stimuli only. Calm, not cooperative with staff care- attempting to grab at medical equipment/BP cuff. Unable to obtain accurate neuro assessment d/t pt not responsive. Respirations even and unlabored, no increased wob/sob noted, pt found to be 87%-89% on RA- placed on 2L NC O2 brought up to 92%-94%, NSR with PACs on sediment remediation consultant, HR- 60s. Rectal temp 97.5 18g IV placed left wrist by ems, 20g IV right wrist. 16fr temp sensing spears placed with good output- cloudy, yellow, foul smelling urine, approx 600mls. Urine obtained and sent down to lab. BP soft 90s/50s- MD Caro aware. Fluids running per NOV, continuous O2 probe, sediment remediation consultant, and BP cycling to monitor. Family at bedside, call norris within reach, all needs met at this time.
[2025-01-11 10:49] LABS: MANUAL DIFF FLAG NO
[2025-01-11 10:52] LABS: VBG Base Excess 5.4 mmol/L; VBG HCO3 31 mmol/L (22-26); VBG pCO2 49 mmHg; VBG pO2 76 mmHg
[2025-01-11 10:53] LABS: Venous Blood Gas Refer to POC result
[2025-01-11 10:57] LABS: Basophils Absolute Auto 0.1 X10*3/uL (0.0-0.2); Basophils Percent Auto 0.5 % (0-2); Eosinophils Percent Auto 0.1 % (0-4); Hematocrit 44.8 % (37.0-47.0); Hemoglobin 14.4 g/dl (12.0-16.0); Imm Gran Abs Auto 0.05 X10*3/uL (0.00-0.03); Imm Gran Pct Auto 0.5 % (0.0-0.4); Lymphocytes Absolute Auto 1.1 X10*3/uL (1.2-4.9); Lymphocytes Percent Auto 10.8 % (20-40); Mean Corpuscular HGB Conc 32.1 g/dl (31.0-35.0); Mean Corpuscular Hemoglobin 29.5 pg (27.0-33.0); Mean Corpuscular Volume 91.8 fL (80.0-98.0); Mean Platelet Volume 11.7 fL (9.4-12.3); Monocytes Absolute Auto 0.6 X10*3/uL (0.1-1.2); Monocytes Percent Auto 5.5 % (2-11); Neutrophils Absolute Auto 8.7 x10*3/uL (2.0-8.3); Neutrophils Percent Auto 82.6 % (45-73); Platelet Count 194 X10*3/uL (160-400); Red Blood Count 4.88 X10*6/uL (4.20-5.50); White Blood Count 10.5 X10*3/uL (4.8-10.8)
[2025-01-11] MEDS: 0.9 % Sodium Chloride 1,000 ML 999 ML IVCONT (11:03)
[2025-01-11 11:13] LABS: Troponin-I High Sensitivity 110.6 ng/L (<3.5-17.0)
[2025-01-11 11:15] LABS: Appearance Urine Turbid; Color Urine Yellow; Glucose Urine UA Negative (Negative); Leukocyte Esterase Urine Large (3+) (Negative); Nitrite Urine Positive (Negative); Specific Gravity - Urine 1.015 (1.005-1.025); UMIC TRIGGER UACC YES; Urine Blood Moderate (2+) (Negative); Urine Ketones Trace mg/dL (Negative); Urine Protein 30 (1+) mg/dL (Neg-Trace)
[2025-01-11 11:34] LABS: Alanine Aminotransferase 11 U/L (0-31); Albumin Level 3.3 g/dL (3.5-5.0); Alkaline Phosphatase 82 U/L (39-117); Anion Gap 14 (12-20); Aspartate Amino Transferase 34 U/L (5-31); Bilirubin Total 0.4 mg/dL (0.0-1.0); Blood Urea Nitrogen 18 mg/dL (9-16); Calcium 8.7 mg/dL (8.4-10.2); Carbon Dioxide 23 mmol/L (22-29); Chloride 109 mmol/L (96-108); Estimated Glomerular Filt Rate > 60; Glucose Random 117 mg/dL (60-115); Potassium 4.8 mmol/L (3.3-5.1); Sodium 141 mmol/L (135-145); Total Protein 6.4 g/dL (6.5-8.0)
--- NOTE | 2025-01-11 11:34 | PC.NURSE ---
Per pt family, pt baseline a/ox3, talkative, wheelchair bound at baseline. Pt frequently gets UTIs per family.
[2025-01-11 11:37] LABS: Bacteria Urine 4+ (None Seen); Calcium Oxalate Crystals Urine Present; Hyaline Casts Urine >20 /LPF (0-2); RBC Urine >20 /HPF (0-2); UACC Culture Trigger YES; WBC Urine >50 /HPF (0-5)
[2025-01-11] MEDS: cefTRIAXone sodium 1 GM VIAL IVPUSH (12:42)
--- NOTE | 2025-01-11 13:00 | PC.NURSE ---
Pt core temp 96.0, MD aware. Pt placed on bare hugger at this time.
--- NOTE | 2025-01-11 13:22 | PHA.MEDREC ---
Addendum entered by Roel Magallanes [facility] 01/11/25 13:33: med rec reviewed Original Note: Pharmacy Consult ? Medication Reconciliation Pharmacy has completed the medication reconciliation. Utilized list from [facility].
[2025-01-11 14:45] LABS: Troponin-I High Sensitivity 251.7 ng/L (<3.5-17.0)
--- NOTE | 2025-01-11 15:02 | ECG_ITS ---
Test Reason : repeat Blood Pressure : */* mmHG Vent. Rate : 87 BPM Atrial Rate : 82 BPM P-R Int : 222 ms QRS Dur : 66 ms QT Int : 388 ms P-R-T Axes : 32 -22 38 degrees QTcB Int : 466 ms Artifact in tracing Probably sinus rhythm Possible Anterior infarct , age undetermined Abnormal ECG When compared with ECG of 11-Jan-2025 09:46, No significant changes seen Referred By: Lam Caro Electronically Signed By: GENNA NAYAK
--- NOTE | 2025-01-11 15:25 | PM.IMHP ---
History of Present Illness Date of Service: 01/11/25 Attending physician on admission: [facility] Chief Complaint: lethargy, decreased responsiveness 89 year old female with history of recurrent UTI, unspecified dementia presented to the ED earlier this morning from SNF due to lethargy, garbled speech, LWK unknown. Family at bedside report patient is oriented x3 and conversive at baseline, occasionally confused. Patient was also hypoxic to 88% per SNF and was placed on 2L, not on O2 at baseline. There have been no fevers or chills reported. Per family the patient has actually seemed more lethargic since friday, then worse this morning with minimal responsiveness. The patient had not been complaining of any chills, sweats, abd pain, n/v, diarrhea, sob, palpitations, near syncope/lightheadedness, urinary symptoms or chest pain prior to this morning's change in mental status. In the ED, temperature sensing spears catheter was placed, patient slightly hypothermic 96.1-96.3 and intermittently tachypneic. She is hypoxic to 88%, placed on 2 L supplemental O2 maintain oximetry 94%. No hypotension. No leukocytosis. Renal function and electrolyte levels normal. Initial troponin 110, repeat 251. Urinalysis with 3+ leukocytes, positive nitrites, 2+ blood, positive urinary sediment and 4+ bacteria. Head CT negative for any acute intracranial abnormality but with extensive chronic findings. CXR and CTA chest pending. Family does not wish to pursue any aggressive procedures/treatments but is agreeable to admission for AC and IV abx. Review of Systems Review of Systems: Yes Unobtainable due to mental condition [facility] Medical History Dementia Recurrent UTI Social History Smoked in Last 30 Days: No Use of substances other than those prescribed or required for medical reasons: No Advance Directives: Yes Advance Directives Information Provided: Yes Advance Directives on File: No Do you have a plan to hurt others: No Plan Meds Allergies Allergy/AdvReac Type Severity Reaction Status Date / Time No Known Allergies Allergy Verified 01/11/25 10:16 Active Medications: Current Medications Acetaminophen (Acetaminophen 325 Mg Tablet) 650 mg PO Q6H PRN PRN Reason: Pain, Mild 1-3,fever,headache Aspirin (Aspirin 81 Mg Tab.Chew) 81 mg PO DAILY JORDAN Calcium Carbonate (Calcium Carbonate 750 Mg Tab.Chew) 750 mg PO Q4H PRN PRN Reason: Heartburn Enoxaparin Sodium (Enoxaparin Sodium 60 Mg/0.6 Ml Syringe) 60 mg 1 mg/kg (60 mg) SUBCUT Q12H JORDAN Magnesium Hydroxide (Milk Of Magnesia 30 Ml Oral.Susp) 30 ml PO DAILY PRN PRN Reason: Constipation Melatonin (Melatonin 3 Mg Tablet) 6 mg PO BEDTIME PRN PRN Reason: Insomnia Sodium Chloride (0.9 % Sodium Chloride Flush 3 Ml Syringe) 3 ml IVFLUSH QSHIFT COUNTS INCLUDE 234 BEDS AT THE [facility] Home Medications ?Medication ?Instructions ?Recorded ?Confirmed ?Last Taken ?Type Saccharomyces boulardii 250 mg 250 mg PO BID 01/11/25 01/11/25 Unknown History capsule (Probiotic (S.boulardii)) acetaminophen 325 mg tablet 650 mg PO Q4H PRN Pain/Fever 01/11/25 01/11/25 Unknown History albuterol sulfate 2.5 mg/3 mL 2.5 mg inhalation Q6H PRN 01/11/25 01/11/25 Unknown History (0.083 %) solution for nebulization Shortness Of Breath Or Wheezing ascorbic acid (vitamin C) 500 mg 500 mg PO BID 01/11/25 01/11/25 Unknown History tablet (Vitamin C) bisacodyl 10 mg rectal suppository 10 mg MD DAILY PRN Constipation 01/11/25 01/11/25 Unknown History cranberry fruit 450 mg tablet 450 mg PO BID 01/11/25 01/11/25 Unknown History (cranberry) loperamide 2 mg tablet 2 mg PO DAILY PRN Loose Stool 01/11/25 01/11/25 Unknown History magnesium citrate (Citrate of 150 ml PO DAILY PRN Constipation 01/11/25 01/11/25 Unknown History Magnesia oral) magnesium hydroxide 400 mg/5 mL 30 ml PO DAILY PRN Constipation 01/11/25 01/11/25 Unknown History oral suspension (Milk of Magnesia) miconazole nitrate 2 % topical 1 appl topical DAILY PRN Rash on 01/11/25 01/11/25 Unknown History cream (Antifungal (miconazole)) Groin sennosides 8.6 mg tablet 17.2 mg PO DAILY 01/11/25 01/11/25 Unknown History sodium phosphates 19 gram-7 118 ml MD DAILY PRN Constipation 01/11/25 01/11/25 Unknown History gram/118 mL enema (Fleet Enema) Physical Exam Vital Signs and Narrative: Vital Signs: Last Vital Signs Temp 96.3 F L 01/11/25 14:22 Pulse 85 01/11/25 14:22 Resp 26 H 01/11/25 14:22 BP 124/51 L 01/11/25 14:22 Pulse Ox 96 01/11/25 14:22 O2 Del Method Nasal Cannula 01/11/25 14:22 O2 Flow Rate 2 01/11/25 14:22 Oxygen Flow Rate 2 01/11/25 10:14 BMI result Body Mass Index 24.0 Constitutional - Awake and Alert, No apparent distress Eyes - PERRLA, EOMI Cardiovascular - S1S2, RRR, No edema Respiratory - Normal lung expansion, Normal respiratory effort, No respiratory distress, CTA bilaterally Gastrointestinal - NT / ND; +BS; No rebound or guarding - spears catheter in place with clear yellow urine Extremities - no calf tenderness bilaterally, no swelling Skin - Warm/Dry Neurological - Minimally responsive only to painful stimulus Results Labs 01/11/25 10:39 01/11/25 10:59 Labs: Laboratory Results - last 24 hr 01/11/25 01/11/25 01/11/25 09:57 10:39 10:49 MCV 91.8 MCH 29.5 MCHC 32.1 RDW 15.0 Plt Count 194 MPV 11.7 Immature Gran % (Auto) 0.5 H Neut % (Auto) 82.6 H Lymph % (Auto) 10.8 L Patrick % (Auto) 5.5 Eos % (Auto) 0.1 Baso % (Auto) 0.5 Lymph # (Auto) 1.1 L Patrick # (Auto) 0.6 Eos # (Auto) 0.0 Baso # (Auto) 0.1 Abs Immat Gran (auto) 0.05 H Absolute Neuts (auto) 8.7 H Absolute Nucleated RBC 0.000 Nucleated RBC % (auto) 0.0 VBG pH 7.40 VBG pCO2 49 VBG pO2 76 VBG HCO3 31 H VBG O2 Saturation 97.0 VBG Base Excess 5.4 Anion Gap Estim Creat Clear Calc Estimated GFR POC Glucose 128 H Random Glucose Calcium Total Bilirubin AST ALT Alkaline Phosphatase Total Protein Albumin Urine Color Urine Appearance Urine pH Ur Specific Unity Urine Protein Urine Glucose (UA) Urine Ketones Urine Blood Urine Nitrite Ur Leukocyte Esterase Urine RBC Urine WBC Ur Squamous Epith Cells Calcium Oxalate Crystal Urine Bacteria Hyaline Casts 01/11/25 10:59 MCV MCH MCHC RDW Plt Count MPV Immature Gran % (Auto) Neut % (Auto) Lymph % (Auto) Patrick % (Auto) Eos % (Auto) Baso % (Auto) Lymph # (Auto) Patrick # (Auto) Eos # (Auto) Baso # (Auto) Abs Immat Gran (auto) Absolute Neuts (auto) Absolute Nucleated RBC Nucleated RBC % (auto) VBG pH VBG pCO2 VBG pO2 VBG HCO3 VBG O2 Saturation VBG Base Excess Anion Gap 14 Estim Creat Clear Calc 45.0 Estimated GFR > 60 POC Glucose Random Glucose 117 H Calcium 8.7 D Total Bilirubin 0.4 AST 34 H ALT 11 Alkaline Phosphatase 82 Total Protein 6.4 L Albumin 3.3 L Urine Color Yellow Urine Appearance Turbid Urine pH 6.0 Ur Specific Unity 1.015 Urine Protein 30 (1+) H Urine Glucose (UA) Negative Urine Ketones Trace Urine Blood Moderate (2+) H Urine Nitrite Positive H Ur Leukocyte Esterase Large (3+) H Urine RBC >20 H Urine WBC >50 H Ur Squamous Epith Cells 11-20 Calcium Oxalate Crystal Present Urine Bacteria 4+ Hyaline Casts >20 Imaging Radiologist's Impressions: Impressions Head CT 01/11/25 09:37 IMPRESSION: No acute intracranial abnormality. Extensive chronic changes as discussed. Electronically signed by: Demarcus Prince MD 01/11/2025 09:50 AM EDT Assessment and Plan (1) NSTEMI (non-ST elevated myocardial infarction): Status: Acute (2) Acute UTI: Status: Acute Plan 89 year old female with history of recurrent UTI, unspecified dementia admitted for acute metabolic encephalopathy with UTI and NSTEMI with encephalopathy Acute metabolic encephalopathy likely related to UTI No sepsis Head CT without any acute intracranial abnormality with extensive chronic changes. US carotids ordered but low suspicion for CVA. Family does not wish to pursue MRI likely r/t infection UA with 3+ leukocytes, positive nitrites, 2+ blood, positive urinary sediment, 4+ bacteria. IV ceftriaxone (01/11) Continue temperature sensing Spears catheter NPO, advance diet as mentation improves. Continue IVF Consider neurology consult if not improving Follow CBC Elevated trops likely NSTEMI, r/o PE with CTA chest Initial troponin 110, repeat [address] depressions in anterior leads. Repeat with the same Cardiology recommending conservative therapy ASA 300 mg p.r., then 81 mg daily Therapeutic Lovenox Echo cardiology consult monitor on tele Acute hypoxemic respiratory failure likely r/t low lung volumes on CXR however r/o PE as above weaned from O2 DVT ppx- lovenox DNR/DNI HCP- Roel Pelayo [phone] Pt requires inpt stay at least 2 midnights due to metabolic encephalopathy with UTI requiring IV abx and probable NSTEMI on parental AC requiring close monitoring of VS, cardiac monitoring and expert consultation Quality Stroke Does the patient have a stroke diagnosis?: No VTE Prior VTE?: No VTE Risk Level:: Medical - moderate - high VTE Device Contraindication: Treatment Not Indicated VTE Drug Contraindication: N/A - Med Ordered
--- NOTE | 2025-01-11 15:57 | PC.NURSE ---
Pt continues to respond to painful stimuli only- MD aware. NSR on cardiac cath lab technologist, BP cycling, continuous O2 probe on pt to monitor. Pt remains on bare hugger d/t low temp.
[2025-01-11] MEDS: Enoxaparin Sodium 60 MG/0.6 ML SYRINGE SUBCUT (16:04)
[2025-01-11] MEDS: Aspirin 300 MG SUPP.RECT PR (16:07)
[2025-01-11] MEDS: Lactated Ringers 1,000 ML 100 ML IVCONT (16:07)
[2025-01-11] MEDS: iohexoL 350 MG/ML 100 ML INFUS..BTL IV (16:15)
[2025-01-12] MEDS: 0.9 % Sodium Chloride Flush 3 ML SYRINGE IVFLUSH ×2 (02:04→21:41)
[2025-01-12] MEDS: Lactated Ringers 1,000 ML 100 ML IVCONT ×3 (02:04→21:41)
[2025-01-12 03:29] VITALS: BP 130/77; PULSE 75; RESP 16; TEMP 36.4; O2SAT 92
[2025-01-12] MEDS: Enoxaparin Sodium 60 MG/0.6 ML SYRINGE SUBCUT (05:10)
--- NOTE | 2025-01-12 08:02 | HO.PM.IMPN ---
Subjective Subjective Date of Service: 01/12/25 Interval History: Seen in follow-up for UTI, encephalopathy Interval history: Patient awake and alert but mumbling nonsensically. Mentation improved. No apparent distress Review of Systems Review of Systems: Yes Unobtainable due to mental status Physical Exam Vital Signs: Vital Signs: Last Vital Signs Temp 97.6 F 01/12/25 03:29 Pulse 75 01/12/25 03:29 Resp 16 01/12/25 03:29 BP 130/77 01/12/25 03:29 Pulse Ox 92 01/12/25 03:29 O2 Del Method Room Air 01/12/25 03:29 O2 Flow Rate 2 01/11/25 14:22 Oxygen Flow Rate 2 01/11/25 10:14 BMI result Body Mass Index 24.7 Constitutional - Awake and Alert, No apparent distress Neuro: Awake and alert but mumbling nonsensically, moving all extremities but unable to follow commands Lung: No respiratory distress, no increased work of breathing Unable to perform further exam as patient continues pushing this provider away Objective Data Active Medications Acetaminophen (Acetaminophen 325 Mg Tablet) 650 mg PO Q6H PRN PRN Reason: Pain, Mild 1-3,fever,headache Aspirin (Aspirin 81 Mg Tab.Chew) 81 mg PO DAILY JORDAN Bisacodyl (Bisacodyl 10 Mg Supp.Rect) 10 mg [place] DAILY PRN PRN Reason: Constipation Calcium Carbonate (Calcium Carbonate 750 Mg Tab.Chew) 750 mg PO Q4H PRN PRN Reason: Heartburn Ceftriaxone Sodium (Ceftriaxone Sodium 1 Gm Vial) 1 gm IVPUSH Q24H [facility] Enoxaparin Sodium (Enoxaparin Sodium 60 Mg/0.6 Ml Syringe) 60 mg 1 mg/kg (60 mg) SUBCUT Q12H [facility] Last Admin: 01/12/25 05:10 Dose: 60 mg Documented By: ANTOINPayam Lactated Ringer's (Lr) 1,000 mls @ 100 mls/hr IVCONT .Q10H [facility] Last Admin: 01/12/25 02:04 Dose: 100 mls/hr Documented By: ANTOINC Magnesium Hydroxide (Milk Of Magnesia 30 Ml Oral.Susp) 30 ml PO DAILY PRN PRN Reason: Constipation Melatonin (Melatonin 3 Mg Tablet) 6 mg PO BEDTIME PRN PRN Reason: Insomnia Miconazole Nitrate (Miconazole 2 % Extra Thick Cr 56.7 Gm Tube) 1 appl TOPICAL DAILY PRN; Protocol PRN Reason: Rash on Groin Sodium Chloride (0.9 % Sodium Chloride Flush 3 Ml Syringe) 3 ml IVFLUSH QSHIFT [facility] Last Admin: 01/12/25 02:04 Dose: 3 ml Documented By: PRISCILA Labs 01/11/25 10:39 01/11/25 10:59 Labs: Laboratory Results - last 24 hr 01/11/25 01/11/25 01/11/25 09:57 10:39 10:49 MCV 91.8 MCH 29.5 MCHC 32.1 RDW 15.0 Plt Count 194 MPV 11.7 Immature Gran % (Auto) 0.5 H Neut % (Auto) 82.6 H Lymph % (Auto) 10.8 L [place] % (Auto) 5.5 Eos % (Auto) 0.1 Baso % (Auto) 0.5 Lymph # (Auto) 1.1 L [place] # (Auto) 0.6 Eos # (Auto) 0.0 Baso # (Auto) 0.1 Abs Immat Gran (auto) 0.05 H Absolute Neuts (auto) 8.7 H Absolute Nucleated RBC 0.000 Nucleated RBC % (auto) 0.0 VBG pH 7.40 VBG pCO2 49 VBG pO2 76 VBG HCO3 31 H VBG O2 Saturation 97.0 VBG Base Excess 5.4 Anion Gap Estim Creat Clear Calc Estimated GFR POC Glucose 128 H Random Glucose Calcium Total Bilirubin AST ALT Alkaline Phosphatase Total Protein Albumin Urine Color Urine Appearance Urine pH Ur Specific [place] Urine Protein Urine Glucose (UA) Urine Ketones Urine Blood Urine Nitrite Ur Leukocyte Esterase Urine RBC Urine WBC Ur Squamous Epith Cells Calcium Oxalate Crystal Urine Bacteria Hyaline Casts 01/11/25 10:59 MCV MCH MCHC RDW Plt Count MPV Immature Gran % (Auto) Neut % (Auto) Lymph % (Auto) [place] % (Auto) Eos % (Auto) Baso % (Auto) Lymph # (Auto) [place] # (Auto) Eos # (Auto) Baso # (Auto) Abs Immat Gran (auto) Absolute Neuts (auto) Absolute Nucleated RBC Nucleated RBC % (auto) VBG pH VBG pCO2 VBG pO2 VBG HCO3 VBG O2 Saturation VBG Base Excess Anion Gap 14 Estim Creat Clear Calc 45.0 Estimated GFR > 60 POC Glucose Random Glucose 117 H Calcium 8.7 D Total Bilirubin 0.4 AST 34 H ALT 11 Alkaline Phosphatase 82 Total Protein 6.4 L Albumin 3.3 L Urine Color Yellow Urine Appearance Turbid Urine pH 6.0 Ur Specific [place] 1.015 Urine Protein 30 (1+) H Urine Glucose (UA) Negative Urine Ketones Trace Urine Blood Moderate (2+) H Urine Nitrite Positive H Ur Leukocyte Esterase Large (3+) H Urine RBC >20 H Urine WBC >50 H Ur Squamous Epith Cells 11-20 Calcium Oxalate Crystal Present Urine Bacteria 4+ Hyaline Casts >20 Assessment and Plan (1) Acute UTI: Status: Acute (2) Altered mental status: Status: Acute Plan 89 year old female with history of recurrent UTI, unspecified dementia admitted for acute metabolic encephalopathy with UTI and NSTEMI with encephalopathy Acute metabolic encephalopathy likely related to UTI No sepsis. Mentation improving- awake and alert but mumbling nonsensically Head CT without any acute intracranial abnormality with extensive chronic changes. US carotids ordered but low suspicion for CVA. Doubt CVA given improvements with abx and family declines MRI unless strong suspicion, pt also unlikely to tolerate UA with 3+ leukocytes, positive nitrites, 2+ blood, positive urinary sediment, 4+ bacteria. IV ceftriaxone (01/11) Continue temperature sensing Esteves catheter NPO, advance diet as mentation improves. BILLET CUTTER eval pending. Continue IVF for now Consider neurology consult if not improving. Continue ASA. Statin unlikely to provide benefit given age Follow CBC Type II NSTEMI Initial troponin 110, repeat 251 CTA chest negative for PE EKG with junctional st depressions in anterior leads. Repeat with the same Cardiology recommending conservative therapy. LIAN fitzgerald Cardiology input appreciated. Unlikely to tolerate echo and would not pattern changer and repairer. DC'd Given ASA 300 mg p.r., continue 81 mg daily Monitor on tele Acute hypoxemic respiratory failure likely r/t low lung volumes on CXR however r/o PE as above weaned from O2 DVT ppx- lovenox DNR/DNI HCP- Roel Pelayo [phone] Requires ongoing inpatient stay due to ongoing encephalopathy likely related to UTI which will require IV antibiotics and monitoring of mentation Quality Stroke Does the patient have a stroke diagnosis?: No VTE Prior VTE?: No VTE Risk Level:: Medical - moderate - high VTE Device Contraindication: Treatment Not Indicated VTE Drug Contraindication: N/A - Med Ordered
--- NOTE | 2025-01-12 08:11 | PC.NURSE ---
pt refusing labs this AM. pt was yelling and thrashing arms at medical lab technician. pt also refusing staff to put on/fix tele leads. Dr. soni notified. tele pack removed from pt
--- NOTE | 2025-01-12 09:07 | P.CONCA_ITS ---
History of Present Illness History of Present Illness Date of Service: 01/12/25 Chief complaint: nstemi, uti Narrative: This is a cardiology consultation regarding elevated troponins. Patient has underlying dementia and it seems that she was brought to the ER for evaluation of lethargy, garbled speech. Apparently, she was hypoxic. In this context, found to be slightly hypothermic and had troponins checked which were slightly abnormal. Patient herself is confused, combative and agitated and not able to have a meaningful conversation. She says essentially telling me to 'go away'. Hence unable to obtain any history from patient. Review of Systems 2 Review of Systems: Unable to obtain [facility] Past Medical History Medical History Dementia Recurrent UTI Family History Pertinent family history: Unable to obtain Social History Social History Household Members: Unknown / Unable to assess Housing: Unknown / Unable to assess Patient Tobacco Use Status: Never used Tobacco Smoked in Last 30 Days: No Use of substances other than those prescribed or required for medical reasons: No Currently Displaying Signs/Symptoms of Drug Intoxication Withdrawal: No Advance Directives: Yes Advance Directives Information Provided: Yes Advance Directives on File: No Advance Directives Date on File: 01/11/25 Do you have a plan to hurt others: No Plan Recently lost weight without trying: Unsure Nutrition Risks: On aspiration precautions and Poor intake 0-25% >4 days Patient : No Meds Allergies Allergy/AdvReac Type Severity Reaction Status Date / Time No Known Allergies Allergy Verified 01/11/25 10:16 Active Medications: Current Medications Acetaminophen (Acetaminophen 325 Mg Tablet) 650 mg PO Q6H PRN PRN Reason: Pain, Mild 1-3,fever,headache Aspirin (Aspirin 81 Mg Tab.Chew) 81 mg PO DAILY JORDAN Bisacodyl (Bisacodyl 10 Mg Supp.Rect) 10 mg [place] DAILY PRN PRN Reason: Constipation Calcium Carbonate (Calcium Carbonate 750 Mg Tab.Chew) 750 mg PO Q4H PRN PRN Reason: Heartburn Ceftriaxone Sodium (Ceftriaxone Sodium 1 Gm Vial) 1 gm IVPUSH Q24H [facility] Enoxaparin Sodium (Enoxaparin Sodium 60 Mg/0.6 Ml Syringe) 60 mg 1 mg/kg (60 mg) SUBCUT Q12H [facility] Last Admin: 01/12/25 05:10 Dose: 60 mg Lactated Ringer's (Lr) 1,000 mls @ 100 mls/hr IVCONT .Q10H COUNTS INCLUDE 234 BEDS AT THE [facility] Last Admin: 01/12/25 02:04 Dose: 100 mls/hr Magnesium Hydroxide (Milk Of Magnesia 30 Ml Oral.Susp) 30 ml PO DAILY PRN PRN Reason: Constipation Melatonin (Melatonin 3 Mg Tablet) 6 mg PO BEDTIME PRN PRN Reason: Insomnia Miconazole Nitrate (Miconazole 2 % Extra Thick Cr 56.7 Gm Tube) 1 appl TOPICAL DAILY PRN; Protocol PRN Reason: Rash on Groin Sodium Chloride (0.9 % Sodium Chloride Flush 3 Ml Syringe) 3 ml IVFLUSH QSHIFT COUNTS INCLUDE 234 BEDS AT THE [facility] Last Admin: 01/12/25 02:04 Dose: 3 ml Home Medications ?Medication ?Instructions ?Recorded ?Confirmed ?Last Taken ?Type Saccharomyces boulardii 250 mg 250 mg PO BID 01/11/25 01/11/25 Unknown History capsule (Probiotic (S.boulardii)) acetaminophen 325 mg tablet 650 mg PO Q4H PRN Pain/Fever 01/11/25 01/11/25 Unknown History albuterol sulfate 2.5 mg/3 mL 2.5 mg inhalation Q6H PRN 01/11/25 01/11/25 Unknown History (0.083 %) solution for nebulization Shortness Of Breath Or Wheezing ascorbic acid (vitamin C) 500 mg 500 mg PO BID 01/11/25 01/11/25 Unknown History tablet (Vitamin C) bisacodyl 10 mg rectal suppository 10 mg [place] DAILY PRN Constipation 01/11/25 01/11/25 Unknown History cranberry fruit 450 mg tablet 450 mg PO BID 01/11/25 01/11/25 Unknown History (cranberry) loperamide 2 mg tablet 2 mg PO DAILY PRN Loose Stool 01/11/25 01/11/25 Unknown History magnesium citrate (Citrate of 150 ml PO DAILY PRN Constipation 01/11/25 01/11/25 Unknown History Magnesia oral) magnesium hydroxide 400 mg/5 mL 30 ml PO DAILY PRN Constipation 01/11/25 01/11/25 Unknown History oral suspension (Milk of Magnesia) miconazole nitrate 2 % topical 1 appl topical DAILY PRN Rash on 01/11/25 01/11/25 Unknown History cream (Antifungal (miconazole)) Groin sennosides 8.6 mg tablet 17.2 mg PO DAILY 01/11/25 01/11/25 Unknown History sodium phosphates 19 gram-7 118 ml [place] DAILY PRN Constipation 01/11/25 01/11/25 Unknown History gram/118 mL enema (Fleet Enema) Physical Exam 2 Vital Signs: Vital Signs: Last Vital Signs Temp 97.6 F 01/12/25 03:29 Pulse 75 01/12/25 03:29 Resp 16 01/12/25 03:29 BP 130/77 01/12/25 03:29 Pulse Ox 92 01/12/25 03:29 O2 Del Method Room Air 01/12/25 03:29 O2 Flow Rate 2 01/11/25 14:22 Oxygen Flow Rate 2 01/11/25 10:14 BMI result Body Mass Index 24.7 Const: Other: confused, combative Orientation/consciousness: No patient oriented x3 HEENT: Other: Unremarkable Head: Yes normal to inspection Neck: Neck: Yes normal visual inspection Chest: Chest palpation & inspection: normal inspection of the chest Resp: Other: Unable to auscultate as patient would not allow Cardio: Other: Unable to evaluate as patient would not allow auscultation Palpation: normal PMI GI: Palpation (GI): Soft to palpation Back/Spine/Pelvis: Other: unremarkable Skin: General skin exam: no rashes or lesions noted Neuro: General: No patient oriented x3 Extrem: General: Yes normal to inspection Psych: Mental Status: mental status grossly abnormal Objective Labs and Meds 01/11/25 10:39 01/11/25 10:59 Lab results: Laboratory Results - last 24 hr 01/11/25 01/11/25 01/11/25 09:57 10:39 10:49 WBC 10.5 RBC 4.88 Hgb 14.4 Hct 44.8 MCV 91.8 MCH 29.5 MCHC 32.1 RDW 15.0 Plt Count 194 MPV 11.7 Immature Gran % (Auto) 0.5 H Neut % (Auto) 82.6 H Lymph % (Auto) 10.8 L [place] % (Auto) 5.5 Eos % (Auto) 0.1 Baso % (Auto) 0.5 Lymph # (Auto) 1.1 L [place] # (Auto) 0.6 Eos # (Auto) 0.0 Baso # (Auto) 0.1 Abs Immat Gran (auto) 0.05 H Absolute Neuts (auto) 8.7 H Absolute Nucleated RBC 0.000 Nucleated RBC % (auto) 0.0 VBG pH 7.40 VBG pCO2 49 VBG pO2 76 VBG HCO3 31 H VBG O2 Saturation 97.0 VBG Base Excess 5.4 Sodium Potassium Chloride Carbon Dioxide Anion Gap BUN Creatinine Estim Creat Clear Calc Estimated GFR POC Glucose 128 H Random Glucose Calcium Total Bilirubin AST ALT Alkaline Phosphatase Troponin I High Sens 110.6 H* D Total Protein Albumin Urine Color Urine Appearance Urine pH Ur Specific [place] Urine Protein Urine Glucose (UA) Urine Ketones Urine Blood Urine Nitrite Ur Leukocyte Esterase Urine RBC Urine WBC Ur Squamous Epith Cells Calcium Oxalate Crystal Urine Bacteria Hyaline Casts 01/11/25 01/11/25 10:59 14:18 WBC RBC Hgb Hct MCV MCH MCHC RDW Plt Count MPV Immature Gran % (Auto) Neut % (Auto) Lymph % (Auto) [place] % (Auto) Eos % (Auto) Baso % (Auto) Lymph # (Auto) [place] # (Auto) Eos # (Auto) Baso # (Auto) Abs Immat Gran (auto) Absolute Neuts (auto) Absolute Nucleated RBC Nucleated RBC % (auto) VBG pH VBG pCO2 VBG pO2 VBG HCO3 VBG O2 Saturation VBG Base Excess Sodium 141 Potassium 4.8 Chloride 109 H Carbon Dioxide 23 Anion Gap 14 BUN 18 H Creatinine 0.67 Estim Creat Clear Calc 45.0 Estimated GFR > 60 POC Glucose Random Glucose 117 H Calcium 8.7 D Total Bilirubin 0.4 AST 34 H ALT 11 Alkaline Phosphatase 82 Troponin I High Sens 251.7 H* D Total Protein 6.4 L Albumin 3.3 L Urine Color Yellow Urine Appearance Turbid Urine pH 6.0 Ur Specific [place] 1.015 Urine Protein 30 (1+) H Urine Glucose (UA) Negative Urine Ketones Trace Urine Blood Moderate (2+) H Urine Nitrite Positive H Ur Leukocyte Esterase Large (3+) H Urine RBC >20 H Urine WBC >50 H Ur Squamous Epith Cells 11-20 Calcium Oxalate Crystal Present Urine Bacteria 4+ Hyaline Casts >20 ECG Interpretation: EKG with underlying sinus rhythm at 87/Min with prolonged [place]; cannot exclude old anterior infarct; leftward axis. Overall, no significant change compared to prior. Imaging Radiologist's impression: Impressions Head CT 01/11/25 09:37 IMPRESSION: No acute intracranial abnormality. Extensive chronic changes as discussed. Electronically signed by: Demarcus Prince MD 01/11/2025 09:50 AM EDT RP Chest X-Ray 01/11/25 15:26 IMPRESSION: Low lung volumes. Cardiac enlargement. No definite active pulmonary disease. Electronically signed by: Demarcus Prince MD 01/11/2025 03:51 PM EDT RP Chest CTA 01/11/25 15:33 IMPRESSION: No evidence of PE. No evidence of aortic dissection or aneurysm. Bibasilar atelectasis and or scarring. Fleischner guidelines were followed. Electronically signed by: Freddy Cooper MD 01/11/2025 04:45 PM EDT RP Carotid Doppler Study 01/11/25 17:07 IMPRESSION: 1. RIGHT: Irregular calcified plaque. 0-49% stenosis by ultrasound criteria. 2. LEFT: [. 0-49% stenosis by ultrasound criteria. Electronically signed by: Tristian Linder MD 01/12/2025 07:27 AM EDT RP Assessment and Plan (1) NSTEMI (non-ST elevated myocardial infarction): Status: Acute Plan High sensitivity troponin levels are 110 and 251. CTA chest shows no evidence of pulmonary embolism. No aortic dissection/aneurysm. Overall, advanced age, frailty, confusion, background of dementia, demand related troponin leak. In this context, do not recommend any aggressive cardiac care. May stop Lovenox. Otherwise, no definitive medical regimen and should focus on overall goals of care. Highly doubt she will allow any testing like echocardiogram and even if it is abnormal it will not cell changer. Procedures Date of Service Date of Service: 01/12/25
--- NOTE | 2025-01-12 09:24 | MHC.CM.PN ---
CHRISTIANO met with Patient, her Son/HCP/Roel and another family member at bedside and addressed IMM with them (original was given to Son and a copy has been placed on the chart). Patient is a LTC Resident and [facility] bed hold @ [facility] and the goal is for her to return there , via BLS, at time of dc. CHRISTIANO has requested that SNF fax the HCP to CM.
[2025-01-12 10:25] LABS: INR Whole Blood 1.1 (0.9-1.1); Prothrombin Time Whole Blood 13.1 sec (11.1-13.5)
[2025-01-12] MEDS: cefTRIAXone sodium 1 GM VIAL IVPUSH (14:10)
--- NOTE | 2025-01-12 14:56 | MHC.SL.SWA ---
Speech Pathologist Impression: Mild oropharyngeal dysphagia, poor self-awareness but able to feed self when alert to task, press of speech persists Risk of Aspiration Due to: Reduced Cognition Dysphasia Diet Status: Liquid Consistency and Strategies for Safe Swallow: Liquid Intake Recommendation: [place] Thick Liquid Intake Strategies: Small Sips Solid Food Consistency: Dietary Recommendations: START DIET on Pureed (NDD1) with [place] Thickened Liquids Additional Modifications to Solid Foods: Oral Medication Intake: Crushed with Puree Please contact the pharmacy regarding appropriate crushable or liquid drug formulations that are available whenever modified delivery is recommended. Compensatory Strategies and Precautions to be Taken for Safe Swallow: Sitting Upright (90 deg) Small Bites and Sips Alternate Liquids/Solids Rate of Ingestion Change Supervision While Eating and Drinking for Safe Swallow: Foods to Avoid: Swallowing Recommended Treatments: Compens. Strategy Educat. Recommendation for Speech: Inpatient Speech Therapy Comment: ADMINISTRATIVE MEDICAL DIRECTOR to monitor tolerance and adjust diet as indicated Frequency/Duration: M-F Daily Date Range for Service Req: Timeline to reassess: Training Development Manager Clinican/Clinical Fellow: No Supervisory Statement: I have reviewed and agree with the student/clinical fellow's documentation: N/A Speech Language Pathologist: Pearl Resendiz M.S., CCC-ADMINISTRATIVE MEDICAL DIRECTOR
[2025-01-12 16:04] VITALS: BP 168/81; PULSE 85; RESP 16; TEMP 37.1; O2SAT 88
[2025-01-12 19:32] VITALS: BP 157/98; PULSE 82; RESP 16; TEMP 36.4; O2SAT 92
[2025-01-13 03:18] VITALS: BP 139/71; PULSE 90; RESP 16; TEMP 36.6; O2SAT 93
[2025-01-13] MEDS: Enoxaparin Sodium 40 MG/0.4 ML SYRINGE SUBCUT (05:41)
[2025-01-13 07:22] VITALS: BP 135/87; PULSE 82; RESP 16; TEMP 36.2; O2SAT 92
[2025-01-13 07:59] LABS: MANUAL DIFF FLAG NO
[2025-01-13 08:08] LABS: Basophils Absolute Auto 0.1 X10*3/uL (0.0-0.2); Basophils Percent Auto 0.7 % (0-2); Eosinophils Absolute Auto 0.4 X10*3/uL (0.0-0.4); Eosinophils Percent Auto 3.4 % (0-4); Hematocrit 45.8 % (37.0-47.0); Imm Gran Abs Auto 0.03 X10*3/uL (0.00-0.03); Imm Gran Pct Auto 0.3 % (0.0-0.4); Lymphocytes Absolute Auto 1.9 X10*3/uL (1.2-4.9); Lymphocytes Percent Auto 18.3 % (20-40); Mean Corpuscular HGB Conc 32.8 g/dl (31.0-35.0); Mean Corpuscular Hemoglobin 29.2 pg (27.0-33.0); Mean Corpuscular Volume 89.1 fL (80.0-98.0); Mean Platelet Volume 11.3 fL (9.4-12.3); Monocytes Percent Auto 9.5 % (2-11); Neutrophils Absolute Auto 7.1 x10*3/uL (2.0-8.3); Neutrophils Percent Auto 67.8 % (45-73); Platelet Count 216 X10*3/uL (160-400); Red Blood Count 5.14 X10*6/uL (4.20-5.50); Red Cell Distribution Width 14.9 % (11.0-16.0); White Blood Count 10.5 X10*3/uL (4.8-10.8)
[2025-01-13] MEDS: Aspirin 81 MG TAB.CHEW PO (08:19)
[2025-01-13] MEDS: 0.9 % Sodium Chloride Flush 3 ML SYRINGE IVFLUSH ×3 (08:20→23:16)
[2025-01-13 08:31] LABS: Blood Urea Nitrogen 5 mg/dL (9-16); Calcium 8.5 mg/dL (8.4-10.2); Creatinine Clr Calc Pharmacy 69.9; Estimated Glomerular Filt Rate > 60; Glucose Random 90 mg/dL (60-115)
[2025-01-13 09:00] LABS: Anion Gap 11 (12-20); Carbon Dioxide 30 mmol/L (22-29); Chloride 103 mmol/L (96-108); Potassium 2.7 mmol/L (3.3-5.1); Sodium 141 mmol/L (135-145)
[2025-01-13 10:22] LABS: Magnesium 1.5 mg/dL (1.6-2.6)
[2025-01-13] MEDS: Potassium Chloride/H20 10 MEQ/100 ML PIGGYBACK 100 MEQ IV ×2 (10:56→12:00)
--- NOTE | 2025-01-13 11:09 | MHC.SL.SWA ---
Speech Pathologist Impression: Risk of Aspiration Due to: Reduced Cognition Dysphasia Diet Status: Recommend continue on current diet of PUREE (NDD1) with NECTAR THICK liquids, pills crushed in puree. Liquid Consistency and Strategies for Safe Swallow: Liquid Intake Recommendation: Onset Thick Liquid Intake Strategies: No Straws Solid Food Consistency: Dietary Recommendations: Pureed (NDD1) Additional Modifications to Solid Foods: Oral Medication Intake: Crushed with Puree Please contact the pharmacy regarding appropriate crushable or liquid drug formulations that are available whenever modified delivery is recommended. Compensatory Strategies and Precautions to be Taken for Safe Swallow: Sitting Upright (90 deg) No Straw Liquids from Cup Small Bites and Sips Alternate Liquids/Solids Supervision While Eating and Drinking for Safe Swallow: Total Assistance (1:1) Foods to Avoid: Swallowing Recommended Treatments: Compens. Strategy Educat. Recommendation for Speech: Inpatient Speech Therapy Comment: Patient seen at Breakfast, being fed with care by POPULATION HEALTH COACH. Patient tolerating purees well, reportedly c/o cream of wheat too thin but taking yogurt from tray with no difficulty, enjoying it. Patient given sip of NT juice from cup, produced timely oral and pharyngeal phase of swallow. Patient given trial of water from cup, on second sip produced immediate wet cough. Patient able to hold cup and drink independently. Recommend continue on current diet of PUREE (NDD1) with NECTAR THICK liquids, pills crushed in puree. BLUEPRINT REPRODUCER will continue to follow. Frequency/Duration: M-F Daily Date Range for Service Req: Timeline to reassess: [place] Mechanic Clinican/Clinical Fellow: No Supervisory Statement: I have reviewed and agree with the student/clinical fellow's documentation: N/A Speech Language Pathologist: Nat Zarate M.A., CCC-BLUEPRINT REPRODUCER
[2025-01-13] MEDS: Potassium Chloride Packet 20 MEQ PACKET 40 MEQ PO ×2 (11:32→20:12)
[2025-01-13] MEDS: cefTRIAXone sodium 1 GM VIAL IVPUSH (13:13)
--- NOTE | 2025-01-13 14:35 | PC.NURSE ---
F/c Removed this AM, pt tolerated well. Pt voided 275ML of clear yellow urine at 14:35. Pt inc of stool, pt had 2 loose BM, skin on buttocks red from moisture, triad paste applied.Pt being turned and repositioned in bed every two hours and selena care provided as needed. Airloss pump in place.
--- NOTE | 2025-01-13 14:44 | HO.PM.IMPN ---
Subjective Subjective Date of Service: 01/13/25 Interval History: seen and examined this morning follow up for UTI awake, alert. Hard of hearing Review of Systems Review of Systems: Yes all other systems are reviewed and are negative Constitutional Constitutional: Denies chills and Denies fever(s) Cardiovascular Cardiovascular: Denies chest pain and Denies palpitations Endocrine Endocrine: Denies palpitations Physical Exam Vital Signs: Vital Signs: Last Vital Signs Temp 97.2 F 01/13/25 07:22 Pulse 82 01/13/25 07:22 Resp 16 01/13/25 07:22 BP 135/87 01/13/25 07:22 Pulse Ox 92 01/13/25 07:22 O2 Del Method Room Air 01/13/25 07:22 O2 Flow Rate 2 01/11/25 14:22 Oxygen Flow Rate 2 01/11/25 10:14 BMI result Body Mass Index 24.7 Const: Other: hard to assess orientation as pt hard of hearing; knows her name and that she is in the hospital General: alert, awake and Physically active Nutritional Appearance: average body habitus Orientation/consciousness: oriented to person Resp: Effort & Inspection: normal respiratory effort, able to speak in complete sentences, no respiratory distress and no use of accessory muscles Cardio: Rate: regular rate GI: Inspection: No distended Palpation (GI): Soft to palpation Neuro: Other: grossly nonfocal General: oriented to person Objective Data Active Medications Acetaminophen (Acetaminophen 325 Mg Tablet) 650 mg PO Q6H PRN PRN Reason: Pain, Mild 1-3,fever,headache Albuterol Sulfate (Albuterol Sulfate (0.083%) 2.5 Mg/3 Ml Vial.Neb) 2.5 mg INHALE Q6H PRN PRN Reason: Shortness Of Breath Or Wheezing Aspirin (Aspirin 81 Mg Tab.Chew) 81 mg PO DAILY [facility] Last Admin: 01/13/25 08:19 Dose: 81 mg Documented By: TEN Bisacodyl (Bisacodyl 10 Mg Supp.Rect) 10 mg ND DAILY PRN PRN Reason: Constipation Calcium Carbonate (Calcium Carbonate 750 Mg Tab.Chew) 750 mg PO Q4H PRN PRN Reason: Heartburn Ceftriaxone Sodium (Ceftriaxone Sodium 1 Gm Vial) 1 gm IVPUSH Q24H [facility] Last Admin: 01/13/25 13:13 Dose: 1 gm Documented By: TEN Enoxaparin Sodium (Enoxaparin Sodium 40 Mg/0.4 Ml Syringe) 40 mg SUBCUT Q24H [facility] Last Admin: 01/13/25 05:41 Dose: 40 mg Documented By: SINGH Magnesium Hydroxide (Milk Of Magnesia 30 Ml Oral.Susp) 30 ml PO DAILY PRN PRN Reason: Constipation Melatonin (Melatonin 3 Mg Tablet) 6 mg PO BEDTIME PRN PRN Reason: Insomnia Miconazole Nitrate (Miconazole 2 % Extra Thick Cr 56.7 Gm Tube) 1 appl TOPICAL DAILY PRN; Protocol PRN Reason: Rash on Groin Potassium Chloride (Potassium Chloride Packet 20 Meq Packet) 40 meq PO BID [facility] Last Admin: 01/13/25 11:32 Dose: 40 meq Documented By: TEN Senna (Sennosides 8.6 Mg Tablet) 17.2 mg PO DAILY [facility] Sodium Chloride (0.9 % Sodium Chloride Flush 3 Ml Syringe) 3 ml IVFLUSH QSHIFT [facility] Last Admin: 01/13/25 08:20 Dose: 3 ml Documented By: TEN Labs 01/13/25 07:36 01/13/25 07:36 Labs: Laboratory Results - last 24 hr 01/13/25 07:36 MCV 89.1 MCH 29.2 MCHC 32.8 RDW 14.9 Plt Count 216 MPV 11.3 Immature Gran % (Auto) 0.3 Neut % (Auto) 67.8 Lymph % (Auto) 18.3 L [place] % (Auto) 9.5 Eos % (Auto) 3.4 Baso % (Auto) 0.7 Lymph # (Auto) 1.9 [place] # (Auto) 1.0 Eos # (Auto) 0.4 Baso # (Auto) 0.1 Abs Immat Gran (auto) 0.03 Absolute Neuts (auto) 7.1 Absolute Nucleated RBC 0.000 Nucleated RBC % (auto) 0.0 Anion Gap 11 L Estim Creat Clear Calc 69.9 Estimated GFR > 60 Random Glucose 90 Calcium 8.5 Magnesium 1.5 L Assessment and Plan (1) Acute UTI: Status: Acute (2) Altered mental status: Status: Acute (3) Hypokalemia: Status: Acute Plan This is an 89 year old female with history of recurrent UTI, unspecified dementia admitted for acute metabolic encephalopathy with UTI and NSTEMI with encephalopathy Acute metabolic encephalopathy likely related to UTI No sepsis. Mentation improving Head CT without any acute intracranial abnormality with extensive chronic changes. Doubt CVA given improvements with abx and family declines MRI unless strong suspicion, pt also unlikely to tolerate no clinically significant stenosis on carotid Doppler ultrasound UA with 3+ leukocytes, positive nitrites, 2+ blood, positive urinary sediment, 4+ bacteria urine culture mixed tong - will Continue IV ceftriaxone (01/11) as pt improving with treatment acute hypokalemia/hypomagnesemia likely due to decreased po intake in the setting of encephalopathy replace and follow mag checked and also low, contributing to hypokalemia -replace as well dysphagia seen by speech, started on NDD1 diet with nectar thick liquids and pills crushed in puree; 1:1 assistance for feeds Type II NSTEMI Initial troponin 110, repeat 251 CTA chest negative for PE EKG with junctional st depressions in anterior leads. Repeat with the same Cardiology recommending conservative therapy. DC lovenox Cardiology input appreciated. 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 DC'd Given ASA 300 mg p.r., continue 81 mg daily Monitor on tele Acute hypoxemic respiratory failure likely r/t low lung volumes on CXR however r/o PE as above weaned from O2, stable on room air DVT ppx- lovenox DNR/DNI HCP- Roel Pelayo [phone] dispo - return to LTC when medically ready, anticipate tomorrow Requires ongoing inpatient stay due to ongoing encephalopathy likely related to UTI which will require IV antibiotics and monitoring of mentation Quality Stroke Does the patient have a stroke diagnosis?: No VTE Prior VTE?: No VTE Risk Level:: Medical - moderate - high VTE Device Contraindication: Treatment Not Indicated VTE Drug Contraindication: N/A - Med Ordered
[2025-01-13] MEDS: Magnesium Sulfate/H2O 2 GM/50 ML PIGGYBACK IV (15:00)
[2025-01-13 15:17] VITALS: BP 130/82; PULSE 80; RESP 18; TEMP 36.6; O2SAT 92
[2025-01-13 19:27] VITALS: BP 133/65; PULSE 79; RESP 18; TEMP 36.6; O2SAT 92
[2025-01-14 03:00] VITALS: BP 135/69; PULSE 75; RESP 16; TEMP 36.1; O2SAT 92
[2025-01-14] MEDS: Enoxaparin Sodium 40 MG/0.4 ML SYRINGE SUBCUT (05:55)
[2025-01-14] MEDS: Aspirin 81 MG TAB.CHEW PO (07:28)
[2025-01-14] MEDS: 0.9 % Sodium Chloride Flush 3 ML SYRINGE IVFLUSH (07:33)
[2025-01-14 07:36] LABS: Anion Gap 11 (12-20); Blood Urea Nitrogen 4 mg/dL (9-16); Calcium 8.3 mg/dL (8.4-10.2); Carbon Dioxide 27 mmol/L (22-29); Chloride 106 mmol/L (96-108); Estimated Glomerular Filt Rate > 60; Glucose Random 85 mg/dL (60-115); Potassium 3.7 mmol/L (3.3-5.1); Sodium 140 mmol/L (135-145)
[2025-01-14 07:51] VITALS: BP 150/88; PULSE 87; RESP 16; TEMP 36.4; O2SAT 91
--- NOTE | 2025-01-14 09:21 | P.DS_ITS ---
DS: Providers Provider Date of Service: 01/14/25 Date of admission: 01/11/25 15:22 Date of discharge: 01/14/25 Primary care physician: Veena Puga MD Consults: 01/11/25 15:19 Consult to Cardiology Routine Consulting Provider: [facility] Reason for consultation: nstemi Attending physician on discharge: Severiano Cruz Discharging clinician: Queenie Rivera DS: Diagnosis Discharge Diagnosis (1) Acute UTI: Status: Acute (2) Altered mental status: Status: Acute (3) Hypokalemia: Status: Acute DS: Summary Hospital Course Hospital Course: From H&P on the day of admission 89 year old female with history of recurrent UTI, unspecified dementia presented to the ED earlier this morning from SNF due to lethargy, garbled speech, LWK unknown. Family at bedside report patient is oriented x3 and conversive at baseline, occasionally confused. Patient was also hypoxic to 88% per SNF and was placed on 2L, not on O2 at baseline. There have been no fevers or chills reported. Per family the patient has actually seemed more lethargic since friday, then worse this morning with minimal responsiveness. The patient had not been complaining of any chills, sweats, abd pain, n/v, diarrhea, sob, palpitations, near syncope/lightheadedness, urinary symptoms or chest pain prior to this morning's change in mental status. In the ED, temperature sensing spears catheter was placed, patient slightly hypothermic 96.1-96.3 and intermittently tachypneic. She is hypoxic to 88%, placed on 2 L supplemental O2 maintain oximetry 94%. No hypotension. No leukocytosis. Renal function and electrolyte levels normal. Initial troponin 110, repeat 251. Urinalysis with 3+ leukocytes, positive nitrites, 2+ blood, positive urinary sediment and 4+ bacteria. Head CT negative for any acute intracranial abnormality but with extensive chronic findings. CXR and CTA chest pending. Family does not wish to pursue any aggressive procedures/treatments but is agreeable to admission for AC and IV abx Acute metabolic encephalopathy likely related to UTI Head CT without any acute intracranial abnormality with extensive chronic changes. Doubt CVA given improvements with abx and family declines MRI unless strong suspicion, pt also unlikely to tolerate. She has no focal neurological deficits. no clinically significant stenosis on carotid Doppler ultrasound. urine culture with mixed tong. patient improving with treatment with IV ceftriaxone and will be discharged to complete course of oral antibiotics. Patient has remained afebrile, no leukocytosis leukocytosis, TSH within normal limits, LFTs, kidney function normal, electrolytes normalized. Ongoing confusion likely due to delirium in the setting of dementia related to patient being outside her comfort zone. Would likely benefit from returning to long- term care and returning to daily routine. Hearing loss likely contributing. Discussed with family and they are in agreement. acute hypokalemia/hypomagnesemia likely due to decreased po intake in the setting of encephalopathy. mag checked and also low, contributing to hypokalemia. resolved with replacement. dysphagia seen by speech, started on NDD1 diet with nectar thick liquids and pills crushed in puree; 1:1 assistance for feeds Type II NSTEMI Initial troponin 110, repeat 251. CTA chest negative for PE. EKG with junctional st depressions in anterior leads. Initially treated with therapeutic Lovenox. Cardiology recommending conservative therapy, DC lovenox Cardiology input appreciated. 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 daily aspirin 81 mg. Acute hypoxemic respiratory failure likely r/t low lung volumes on CXR. Imaging negative for PE as above. weaned from O2, stable on room air. incentive spirometry if patient able to participate. right eye conjuntivitis. started erythromycin 01/14 - rec 7 day course Time Attestation Discharge Coordination Time (in mins): 36 Quality: Safe Use of Opioids Does Pt have an Active Cancer Diagnosis on the Problem List?: No Quality: Stroke Does the patient have a stroke diagnosis?: No Physical Exam Vital Signs: Vital Signs: Last Vital Signs Temp 97.5 F 01/14/25 07:51 Pulse 87 01/14/25 07:51 Resp 16 01/14/25 07:51 BP 150/88 H 01/14/25 07:51 Pulse Ox 91 L 01/14/25 07:51 O2 Del Method Room Air 01/14/25 07:51 O2 Flow Rate 2 01/11/25 14:22 Oxygen Flow Rate 2 01/11/25 10:14 BMI result Body Mass Index 24.7 Const: Other: hard of hearing General: alert, awake and Physically active Nutritional Appearance: average body habitus Orientation/consciousness: oriented to person Resp: Effort & Inspection: normal respiratory effort, able to speak in complete sentences, no respiratory distress and no use of accessory muscles Neuro: Other: grossl nonfocal General: oriented to person Extrem: General: Yes no pedal edema DS: Data Data Completed and Pending Labs on day of discharge: Laboratory Results - last 24 hr 01/13/25 01/14/25 07:36 05:39 Hold Purple Top SEE NOTE Sodium 140 Potassium 3.7 D Chloride 106 Carbon Dioxide 27 Anion Gap 11 L BUN 4 L Creatinine 0.49 L Estim Creat Clear Calc 67.0 Estimated GFR > 60 Random Glucose 85 Calcium 8.3 L Magnesium 1.5 L Discharge Plan Discharge Anticipated Discharge Date/Time: 01/14/25 12:42 Patient Disposition: Xfer SNF Discharge Diagnosis: Metabolic encephalopathy due to UTI Hypokalemia Right eye conjunctivitis Demand ischemia Referrals: Veena Puga MD [Primary Care Provider] - 1 Week Discharge Medications: New erythromycin 5 mg/gram (0.5 %) Ointment 1 cm ophthalmic-Right QID 7 Days Qty: 3.5 0RF cefuroxime axetil 250 mg tablet 250 mg PO BID 4 Days Qty: 8 0RF Continued sennosides 8.6 mg Tablet 17.2 mg PO DAILY acetaminophen 325 mg Tablet 650 mg PO Q4H PRN (Reason: Pain/Fever) albuterol sulfate 2.5 mg /3 mL (0.083 %) solution for nebulization 2.5 mg inhalation Q6H PRN (Reason: Shortness Of Breath Or Wheezing) miconazole nitrate [Antifungal (miconazole)] 2 % Cream 1 appl TOPICAL DAILY PRN (Reason: Rash on Groin) loperamide 2 mg Tablet 2 mg PO DAILY PRN (Reason: Loose Stool) Rx Instructions: administer after each loose stool until symptoms controlled; do not exceed 8 mg per 24 hrs magnesium hydroxide [Milk of Magnesia] 400 mg/5 mL Suspension 30 ml PO DAILY PRN (Reason: Constipation) Rx Instructions: If no BM in 3 days. ascorbic acid (vitamin C) [Vitamin C] 500 mg Tablet 500 mg PO BID bisacodyl 10 mg Suppository 10 mg RI DAILY PRN (Reason: Constipation) Rx Instructions: If no BM in 8 hours after M.o.M. Fleet Enema 19-7 gram/118 mL Enema 118 ml RI DAILY PRN (Reason: Constipation) Rx Instructions: No BM in 8 hours after Bisacodyl. magnesium citrate [Citrate of Magnesia] Solution 150 ml PO DAILY PRN (Reason: Constipation) Rx Instructions: If no BM in 12 hours. Saccharomyces boulardii [Probiotic (S.boulardii)] 250 mg Capsule 250 mg PO BID cranberry 450 mg Tablet 450 mg PO BID Rx Instructions: administer with meals Discharge Orders: Discharge Order (Routine); Ordered 01/14/25 Ordered By: Queenie Rivera Activity on Discharge: As tolerated Stand Alone Forms: Patient Portal Discharge page Print Language: Syriac Care Plan Goals: See below Health Concerns: Metabolic encephalopathy due to UTI/delirium setting of dementia Demand ischemia Hypokalemia Right eye conjunctivitis Plan of Treatment: Complete 4 more days of oral antibiotics for UTI Complete 7 day course of topical erythromycin for right eye conjunctivitis Intermittent labs to monitor potassium and magnesium levels Assessment: See discharge summary
[2025-01-14 10:04] LABS: Alanine Aminotransferase 9 U/L (0-31); Albumin Level 3.2 g/dL (3.5-5.0); Alkaline Phosphatase 81 U/L (39-117); Aspartate Amino Transferase 28 U/L (5-31); Bilirubin Direct 0.2 mg/dL (0.0-0.5); Bilirubin Total 0.7 mg/dL (0.0-1.0); Total Protein 6.3 g/dL (6.5-8.0)
[2025-01-14 10:10] LABS: Thyroid Stimulating Hormone 2.66 uIU/mL (0.32-4.0)
[2025-01-14] MEDS: Erythromycin Base 0.5% Oph Oin 1 GM TUBE 1 CM EYE-RIGHT ×2 (10:22→12:33)
[2025-01-14] MEDS: cefTRIAXone sodium 1 GM VIAL IVPUSH (12:33)
--- NOTE | 2025-01-14 13:36 | MHC.CM.PN ---
PT CLEARED TO DC BACK TO LTC TODAY AT [facility] CM SPOKE TO PTS SON, JOCY [phone], HE IS AWARE OF THE DC PLAN/TIME BLS TRANSPORT BOOKED WITH [facility] FOR 1445 HOURS
[2025-01-14 14:32] VITALS: BP 158/94; PULSE 94; RESP 16; TEMP 37; O2SAT 93
== END 2025-01-14 15:20 | disposition skilled nursing facility (03) | DRG 689 ==
LOC: HO.ED 14:04 → HO.EDOVER 15:32 → HO.IMC 17:52 → HO.S3 01-12 14:31
PROVIDERS: Admitting Provider Physician Assistant; Emergency Provider Emergency Medicine; PCP Internal Medicine; Visit Provider Physician Assistant Medical
DX: N39.0 Urinary tract infection, site not specified (principal); G93.41 Metabolic encephalopathy; J96.01 Acute respiratory failure with hypoxia; I21.A1 Myocardial infarction type 2; F03.90 Unspecified dementia, unspecified severity, without behavioral disturbance, psychotic disturbance, mood disturbance, and anxiety; H10.9 Unspecified conjunctivitis; R13.10 Dysphagia, unspecified; E83.42 Hypomagnesemia; E87.6 Hypokalemia; Z66 Do not resuscitate; Z79.899 Other long term (current) drug therapy
CPT/HCPCS: 36415; 70450; 71045; 71275; 80048; 80053; 80076; 81001; 82803; 82947; 83735; 84443; 84484; 85025; 85610; 87086; 92610; 93005; 93880; 99285; J0696; J1650; J3475; J3480; J7120; Q9967

== ENCOUNTER → 2025-01-11 09:37 | Outpatient (BNV) | payer MEDICARE, SELFPAY | PROVIDERS: Admitting Provider Physician Assistant; Emergency Provider Emergency Medicine; PCP Internal Medicine; Visit Provider Internal Medicine | DX: R94.31 Abnormal electrocardiogram [ECG] [EKG] (principal); Z13.6 Encounter for screening for cardiovascular disorders | CPT/HCPCS: 93010 ==

== ENCOUNTER → 2025-01-11 09:37 | Outpatient (BNV) | payer MEDICARE, SELFPAY | PROVIDERS: Emergency Provider Emergency Medicine; Visit Provider Radiology Diagnostic Radiology | DX: R09.02 Hypoxemia (principal); R79.89 Other specified abnormal findings of blood chemistry; I63.9 Cerebral infarction, unspecified; R41.82 Altered mental status, unspecified; J98.4 Other disorders of lung; I51.7 Cardiomegaly | CPT/HCPCS: 70450; 71045; 71275; 93880 ==

== ENCOUNTER → 2025-01-11 15:22 | Outpatient (BNV) | payer MEDICARE, SELFPAY | PROVIDERS: Admitting Provider Physician Assistant; Emergency Provider Emergency Medicine; PCP Internal Medicine; Visit Provider Internal Medicine | DX: I21.4 Non-ST elevation (NSTEMI) myocardial infarction (principal) | CPT/HCPCS: 99223 ==

== ENCOUNTER → 2025-01-11 15:22 | Outpatient (BNV) | payer MEDICARE, SELFPAY | PROVIDERS: Admitting Provider Physician Assistant; Emergency Provider Emergency Medicine; PCP Internal Medicine; Visit Provider Physician Assistant | DX: N39.0 Urinary tract infection, site not specified (principal); R41.82 Altered mental status, unspecified; E87.6 Hypokalemia | CPT/HCPCS: 99223; 99232; 99233; 99239 ==